=== PATIENT | female | born 1940 | race Caucasian/White ===

== ENCOUNTER 2016-08-09 20:27 | Emergency (ER) | payer MEDICARE, BC ==
[2016-08-09] MEDS ORDERED: Ondansetron INJ* 2 MG/ML VIAL IV ONE (20:44)
[2016-08-09] MEDS ORDERED: Ondansetron INJ* 2 MG/ML VIAL ONE (20:45)
[2016-08-09 20:50] LABS: Hematocrit 43 % (35-47); Mean Corpuscular HGB Conc 32 g/dl (31-36); Mean Corpuscular Hemoglobin 32 pg (27-31); Mean Corpuscular Volume 98 fL (80-97); Mean Platelet Volume 7 um3 (7.4-10.4); Red Blood Count 4.41 10^6/ul (4.0-5.4); Red Cell Distribution Width 14 % (10.5-15); White Blood Count 11.2 10^3/ul (3.5-10.8)
[2016-08-09 21:04] LABS: ALT 22 U/L (7-52); AST 20 U/L (13-39); Alkaline Phosphatase 60 U/L (34-104); Anion Gap 11 mmol/L (2-11); BUN/Creatinine Ratio 16.3 (8-20); Blood Urea Nitrogen 16 mg/dL (6-24); CO2 Carbon Dioxide 19 mmol/L (22-32); Chloride 108 mmol/L (101-111); EGFR African American 71.2 (>60); EGFR Non-African American 55.3 (>60); Globulin 3.1 g/dL (2-4); Glucose 95 mg/dL (70-100); Potassium 4.4 mmol/L (3.5-5.0); Sodium 138 mmol/L (133-145); Total Protein 7.1 g/dL (6.4-8.9)
[2016-08-09 21:22] LABS: Acetaminophen 32 mcg/mL; Alcohol 102 mg/dL (<10); Salicylate < 2.50 mg/dL (<30)
--- NOTE | 2016-08-09 21:33 | ED ---
I, Virgil Keyes, scribed for Deyvi Turner MD on 08/09/16 at 2035 . Substance Abuse/Use - HPI Summary HPI Summary: Pt is a 76 y/o female BIBA that presents to the ED c/o EtOH intoxication. Pt stated I drank too much Listerine because I was ashamed to go out and get liquor at my age." Pt stated she is nauseas, wants to vomit, and has 7/10 abd pain. Per EMS, pt reportedly drank more than 500 mL of Listerine. Hx: alcohol abuse. - History Of Current Complaint Stated Complaint: INGESTED LISTERINE Time Seen by Provider: 08/09/16 20:29 Hx Obtained From: Patient, EMS ?: No Onset/Duration of Drug/ETOH Abuse: Hours Ingestion History: Type/Name Of Drug - Listerine, Amount Ingested - 500 + mL Overdose Characteristics: Oral Timing Of Abuse: Binge Use Severity Initially: Moderate Severity Currently: Moderate Associated Signs And Symptoms: Nausea, Vomiting Related Hx: Drug/Alcohol Last Used @, Prior Drug Abuse Counseling/Admission, Prior Psych Admission - Allergies/Home Medications Allergies/Adverse Reactions: Allergies Allergy/AdvReac Type Severity Reaction Status Date / Time Bacitracin Allergy Unknown Unknown Verified 01/18/15 17:23 [From [facility]] Reaction Details Neomycin Allergy Unknown Unknown Verified 01/18/15 17:23 [[facility]] Reaction Details Polymyxin B Allergy Unknown Unknown Verified 01/18/15 17:23 [[facility]] Reaction Details Aspirin Allergy Anaphylatic Verified 01/18/15 17:23 Shock Cefuroxime [From Ceft[facility]] Allergy Swelling Verified 01/18/15 17:23 PMH/Surg Hx/FS Hx/Imm Hx Endocrine/Hematology History: Denies: Hx Anticoagulant Therapy, Hx Diabetes, Hx Thyroid Disease, Hx Anemia , Hx Unexplained Bleeding Cardiovascular History: Reports: Hx Congestive Heart Failure, Hx Hypercholesterolemia, Hx Hypertension, Other Cardiovascular Problems/Disorders - ENLARGED HEART Denies: Hx Aneurysm, Hx Angina, Hx Angioplasty, Hx Auto Implanted Cardiovert Defib, Hx Cardiac Arrest, Hx Cardiomegaly, Hx Congenital Heart Disease, Hx Coronary Artery Disease, Hx Deep Vein Thrombosis, Hx Embolism, Hx Hypotension, Hx Pacemaker/ICD, Hx Peripheral Vascular Disease, Hx Rheumatic Fever, Hx Syncope , Hx Valvular Heart Disease Respiratory History: Reports: Hx Asthma, Hx Chronic Obstructive Pulmonary Disease (COPD) Denies: Hx Chronic Bronchitis, Hx Cystic Fibrosis, Hx Lung Cancer, Hx Pleural Effusion, Hx Pneumonia, Hx Pulmonary Edema, Hx Pulmonary Embolism, Hx Seasonal Allergies, Hx Sleep Apnea, Other Respiratory Problems/Disorders GI History: Reports: Hx Hiatal Hernia, Hx Irritable Bowel History: Reports: Other Problems/Disorders - UTIs, chronic. Denies: Hx Renal Disease Musculoskeletal History: Reports: Hx Arthritis Denies: Hx Back Problems, Hx Bursitis, Hx Congenital Bone Abnormalities, Hx Fibromyalgia, Hx Gout, Hx Orthopedic Injury, Hx Osteoporosis, Hx Scoliosis, Hx Tendonitis, Other Musculoskeletal History Sensory History: Reports: Hx Contacts or Glasses Denies: Hx Cataracts, Hx Eye Injury, Hx Eye Prosthesis, Hx Glaucoma, Hx Macular Degeneration, Hx Vision Problem, Hx Deafness, Hx Hearing Aid, Hx Hearing Problem, Other Sensory Impairments Opthamlomology History: Reports: Hx Contacts or Glasses Denies: Hx Cataracts, Hx Eye Injury, Hx Eye Prosthesis, Hx Glaucoma, Hx Macular Degeneration, Hx Vision Problem, Other Sensory Impairments Neurological History: Denies: Hx Dementia, Hx Seizures Psychiatric History: Reports: Hx Anxiety, Hx Depression, Hx Community Mental Health Tx, Hx Bipolar Disorder, Hx Substance Abuse - alcohol, Other Psychiatric Issues/Disorders Denies: Hx Attention Deficit Hyperactivity Disorder, Hx Eating Disorder, Hx Panic Disorder, Hx Post Traumatic Stress Disorder, Hx Inpatient Treatment, Hx Schizophrenia, Hx Suicide Attempt, Hx of Violent Episodes Against Others - Cancer History Hx Chemotherapy: No Hx Radiation Therapy: No - Surgical History Surgery Procedure, Year, and Place: appendectomy. tonsillectomy - Immunization History Date of Tetanus Vaccine: Unsure Date of Influenza Vaccine: 2012 Infectious Disease History: Denies: Hx Hepatitis, Hx Human Immunodeficiency Virus (HIV), Hx Tuberculosis - Family History Known Family History: Positive: Other - Social History Alcohol Use: None Substance Use Type: Reports: None Smoking Status (MU): Former Smoker Amount Used/How Often: OVER 2 PPD Length of Time of Smoking/Using Tobacco: 12 YEARS Have You Smoked in the Last Year: No Review of Systems Constitutional: Negative Eyes: Negative ENT: Negative Cardiovascular: Negative Respiratory: Negative Positive: Vomiting, Nausea Genitourinary: Negative Musculoskeletal: Negative Skin: Negative Neurological: Negative Psychological: Other - EtOH intoxication All Other Systems Reviewed And Are Negative: Yes Physical Exam Triage Information Reviewed: Yes Vital Signs On Initial Exam: Initial Vitals Temp Pulse Resp BP Pulse Ox 98.1 F 117 18 138/86 98 08/09/16 20:35 08/09/16 20:35 08/09/16 20:35 08/09/16 20:35 08/09/16 20:35 Vital Signs Reviewed: Yes Appearance: Positive: Well-Appearing, No Pain Distress Skin: Positive: Warm Head/Face: Positive: Normal Head/Face Inspection Eyes: Positive: GUS ENT: Positive: Hearing grossly normal Neck: Positive: Supple Respiratory/Lung Sounds: Positive: Breath Sounds Present Cardiovascular: Positive: Normal Abdomen Description: Positive: Nontender, Soft Bowel Sounds: Positive: Present Musculoskeletal: Positive: Strength/ROM Intact Neurological: Positive: Sensory/Motor Intact, Alert, Oriented to Person Place, Time Psychiatric: Positive: Affect/Mood Appropriate Diagnostics - Vital Signs Vital Signs Temp Pulse Resp BP Pulse Ox 08/09/16 20:35 98.1 F 117 18 138/86 98 - Laboratory Lab Results: Lab Results 08/09/16 08/09/16 08/09/16 Range/Units 20:30 20:30 20:30 WBC 11.2 H (3.5-10.8) 10^3/ul RBC 4.41 (4.0-5.4) 10^6/ul Hgb 14.0 (12.0-16.0) g/dl Hct 43 (35-47) % MCV 98 H (80-97) fL MCH 32 H (27-31) pg MCHC 32 (31-36) g/dl RDW 14 (10.5-15) % Plt Count 424 (150-450) 10^3/ul MPV 7 L (7.4-10.4) um3 Neut % (Auto) 68.6 (38-83) % Lymph % (Auto) 22.3 L (25-47) % [place] % (Auto) 7.7 (1-9) % Eos % (Auto) 0.7 (0-6) % Baso % (Auto) 0.7 (0-2) % Absolute Neuts (auto) 7.7 (1.5-7.7) 10^3/ul Absolute Lymphs (auto) 2.5 (1.0-4.8) 10^3/ul Absolute Monos (auto) 0.9 H (0-0.8) 10^3/ul Absolute Eos (auto) 0.1 (0-0.6) 10^3/ul Absolute Basos (auto) 0.1 (0-0.2) 10^3/ul Absolute Nucleated RBC 0 10^3/ul Nucleated RBC % 0 Sodium 138 (133-145) mmol/L Potassium 4.4 (3.5-5.0) mmol/L Chloride 108 (101-111) mmol/L Carbon Dioxide 19 L (22-32) mmol/L Anion Gap 11 (2-11) mmol/L BUN 16 (6-24) mg/dL Creatinine 0.98 H (0.51-0.95) mg/dL Est GFR ( Amer) 71.2 (>60) Est GFR (Non-Af Amer) 55.3 (>60) BUN/Creatinine Ratio 16.3 (8-20) Glucose 95 (70-100) mg/dL Lactic Acid 2.4 H* (0.5-2.0) mmol/L Calcium 9.0 (8.6-10.3) mg/dL Total Bilirubin 0.30 (0.2-1.0) mg/dL AST 20 (13-39) U/L ALT 22 (7-52) U/L Alkaline Phosphatase 60 (34-104) U/L Total Protein 7.1 (6.4-8.9) g/dL Albumin 4.0 (3.2-5.2) g/dL Globulin 3.1 (2-4) g/dL Albumin/Globulin Ratio 1.3 (1-3) Salicylates < 2.50 (<30) mg/dL Acetaminophen 32 mcg/mL Serum Alcohol 102 H (<10) mg/dL Result Diagrams: 08/09/16 20:30 08/09/16 20:30 Lab Statement: Any lab studies that have been ordered have been reviewed, and results considered in the medical decision making process. - CT CT Brain CT Interpretation: No Acute Changes CT Interpretation Completed By: Radiologist - No acute intercranial pathology. - EKG 20:42 EKG Interpretation: Sinus tachycardia at 117 bpm, RBBB Course/Dx - Course Assessment/Plan: Pt medically cleared for mental health evaluation at 23:12. - Diagnoses Provider Diagnoses: Alcohol intoxication Discharge - Discharge Plan Condition: Improved Disposition: HOME The documentation as recorded by the Wali reynaga Karl accurately reflects the service I personally performed and the decisions made by me, Deyvi Turner MD.
[2016-08-09 21:47] LABS: Urine Bacteria Absent (Absent); Urine Bilirubin Negative (Negative); Urine Glucose Negative (Negative); Urine Nitrite Negative (Negative)
[2016-08-10 00:18] LABS: Benzodiazepine Urine Screen None Detected (None Detect)
[2016-08-10 01:23] VITALS: BP 149/90
[2016-08-10] MEDS ORDERED: Gabapentin CAP(*) 100 MG PO ONE (01:29)
[2016-08-10] MEDS ORDERED: Gabapentin CAP(*) 300 MG PO ONE (01:50)
[2016-08-10] MEDS ORDERED: Metoprolol Tartrate TAB* 25 MG PO ONE (01:50)
--- NOTE | 2016-08-10 06:58 | RAD ---
INDICATION: Intracranial injury COMPARISON: None TECHNIQUE: Noncontrast axial source images were acquired from the skull base to the vertex. FINDINGS: Ventricles/sulci: The ventricles and cisterns are normal in size and configuration for age. Brain parenchyma: There is no focal parenchymal finding, evidence of intracranial mass, or intracranial mass effect. Intracranial hemorrhage:None. Extra-axial spaces: There are no abnormal extra axial fluid collections or evidence of extra-axial mass. Calvarium: There is no calvarial fracture or other calvarial abnormality. Scalp: There is no evidence of scalp or extracalvarial soft tissue abnormality. Paranasal sinuses/mastoid: The paranasal sinuses and mastoid air cells are clear. Other: None. IMPRESSION: NO ACUTE INTRACRANIAL FINDINGS.
--- NOTE | 2016-08-12 12:58 | PN ---
Progress Note - Progress Note Note: Urine culture grew enterococcus faecalisPatient called and informed bactrim was sent to her pharmacy at [facility] for [place]. Patient also currently experiencing symptoms such as frequency, urgency and burning. 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 Return precautions given over the phone.
--- NOTE | 2016-08-13 07:21 | PN ---
Progress Note - Progress Note Note: Patient placed on Bactrim. Enterococcus susceptible. Patient on appropriate antibiotic. Nothing further indicated.
== END 2016-08-10 08:10 | disposition home or self-care (01) ==
LOC: ED 20:27
DX: F10.129 Alcohol abuse with intoxication, unspecified (principal); R11.2 Nausea with vomiting, unspecified; Z87.891 Personal history of nicotine dependence
CPT/HCPCS: 36415; 70450; 80053; 80307; 80320; 80329; 81003; 81015; 83605; 85025; 87077; 87086; 87186; 93005; 96374; 96375; 99283; A9270-GY; G0480; J2405

== ENCOUNTER 2016-08-18 11:56 | Inpatient (IN) | payer MEDICARE, BC ==
[2016-08-18] MEDS ORDERED: NS 0.9% 1000 ML* 2,000 ML IV ONE (12:26)
[2016-08-18] MEDS ORDERED: Morphine INJ* 4 MG/ML 1 ML CARPUJECT IV ONE (12:26)
[2016-08-18] MEDS ORDERED: Pantoprazole IV* 40 MG IV ONE (12:26)
[2016-08-18] MEDS ORDERED: Ondansetron INJ* 2 MG/ML VIAL IV ONE (12:26)
[2016-08-18 13:04] LABS: Comments Flag Yes; Hematocrit 19 % (35-47); Mean Corpuscular HGB Conc 32 g/dl (31-36); Mean Corpuscular Hemoglobin 33 pg (27-31); Mean Corpuscular Volume 102 fL (80-97); Mean Platelet Volume 7 um3 (7.4-10.4); Red Blood Count 1.83 10^6/ul (4.0-5.4); Red Cell Distribution Width 14 % (10.5-15); White Blood Count 11.2 10^3/ul (3.5-10.8)
[2016-08-18 13:09] LABS: Add Diff/Slide Review? Slide Review Added
--- NOTE | 2016-08-18 13:12 | RAD ---
INDICATION: Shortness of breath. COMPARISON: Comparison is made with prior chest x-ray studies from January 31, 2011 and January 16, 2015. TECHNIQUE: A portable view of the chest was obtained. FINDINGS: The heart is within normal limits in size. There is a large retrocardiac density which projects over the heart and right lung base partially air-filled most consistent with a large hiatal hernia which appears unchanged. The lungs are grossly clear. No pleural effusion is seen. IMPRESSION: 1. NO EVIDENCE FOR ACUTE FINDING. 2. LARGE HIATAL HERNIA.
[2016-08-18 13:16] LABS: Ammonia 28 mol/L (16-53)
[2016-08-18 13:21] LABS: Albumin 3.3 g/dL (3.2-5.2); BUN/Creatinine Ratio 53.7 (8-20); C Reactive Protein 6.16 mg/L (< 5.00); Calcium 8.8 mg/dL (8.6-10.3); EGFR African American 55.8 (>60); EGFR Non-African American 43.4 (>60); Globulin 2.6 g/dL (2-4); Magnesium 1.6 mg/dL (1.9-2.7); Total Bilirubin 0.2 mg/dL (0.2-1.0); Total Protein 5.9 g/dL (6.4-8.9)
[2016-08-18 13:22] LABS: B Type Natriuretic Peptide 42 pg/mL
[2016-08-18 13:24] LABS: Potassium 4.7 mmol/L (3.5-5.0)
[2016-08-18] MEDS ORDERED: Pantoprazole IV* 40 MG ONE (13:35)
[2016-08-18] MEDS ORDERED: NS 0.9% 1000 ML* 1,000 ML IV ONE (13:47)
--- NOTE | 2016-08-18 14:39 | ED ---
Geraldine Gonzalez Matthew, scribed for Urban Jamison MD on 08/18/16 at 1228 . GI/ HPI - HPI Summary HPI Summary: A 76 y/o female presents to the ED with gradually worsening rectal bleeding since a week ago. The stool is described as black. The patient is anemic and currently taking iron pills. Associated symptoms include abdominal pain, SOB, and lower back pain since a week ago. The patient denies vomiting. She is not on blood thinners and was hospitalized recently for alcoholism. She states her last drink was two weeks ago. - History of Current Complaint Chief Complaint: EDRespiratoryDistress Time Seen by Provider: 08/18/16 12:02 Stated Complaint: SHORT OF BREATH Hx Obtained From: Patient Onset/Duration: Started Weeks Ago - 1, Atraumatic, Still Present Timing: Constant Severity: Moderate Current Severity: Moderate Pain Intensity: 0 Associated Signs and Symptoms: Positive: Black Tarry Stool, Blood w/Stool, Abdominal Pain Aggravating Factor(s): Nothing Alleviating Factor(s): Nothing - Allergy/Home Medications Allergies/Adverse Reactions: Allergies Allergy/AdvReac Type Severity Reaction Status Date / Time Bacitracin Allergy Unknown Unknown Verified 01/18/15 17:23 [[facility]] Reaction Details Neomycin Allergy Unknown Unknown Verified 01/18/15 17:23 [[facility]] Reaction Details Polymyxin B Allergy Unknown Unknown Verified 01/18/15 17:23 [[facility]] Reaction Details Aspirin Allergy Anaphylatic Verified 01/18/15 17:23 Shock Cefuroxime [From Ceftin] Allergy Swelling Verified 01/18/15 17:23 PMH/Surg Hx/FS Hx/Imm Hx Endocrine/Hematology History: Denies: Hx Anticoagulant Therapy, Hx Diabetes, Hx Thyroid Disease, Hx Anemia , Hx Unexplained Bleeding Cardiovascular History: Reports: Hx Congestive Heart Failure, Hx Hypercholesterolemia, Hx Hypertension, Other Cardiovascular Problems/Disorders - ENLARGED HEART Denies: Hx Aneurysm, Hx Angina, Hx Angioplasty, Hx Auto Implanted Cardiovert Defib, Hx Cardiac Arrest, Hx Cardiomegaly, Hx Congenital Heart Disease, Hx Coronary Artery Disease, Hx Deep Vein Thrombosis, Hx Embolism, Hx Hypotension, Hx Pacemaker/ICD, Hx Peripheral Vascular Disease, Hx Rheumatic Fever, Hx Syncope , Hx Valvular Heart Disease Respiratory History: Reports: Hx Asthma, Hx Chronic Obstructive Pulmonary Disease (COPD) Denies: Hx Chronic Bronchitis, Hx Cystic Fibrosis, Hx Lung Cancer, Hx Pleural Effusion, Hx Pneumonia, Hx Pulmonary Edema, Hx Pulmonary Embolism, Hx Seasonal Allergies, Hx Sleep Apnea, Other Respiratory Problems/Disorders GI History: Reports: Hx Hiatal Hernia, Hx Irritable Bowel History: Reports: Other Problems/Disorders - UTIs, chronic. Denies: Hx Renal Disease Musculoskeletal History: Reports: Hx Arthritis Denies: Hx Back Problems, Hx Bursitis, Hx Congenital Bone Abnormalities, Hx Fibromyalgia, Hx Gout, Hx Orthopedic Injury, Hx Osteoporosis, Hx Scoliosis, Hx Tendonitis, Other Musculoskeletal History Sensory History: Reports: Hx Contacts or Glasses Denies: Hx Cataracts, Hx Eye Injury, Hx Eye Prosthesis, Hx Glaucoma, Hx Macular Degeneration, Hx Vision Problem, Hx Deafness, Hx Hearing Aid, Hx Hearing Problem, Other Sensory Impairments Opthamlomology History: Reports: Hx Contacts or Glasses Denies: Hx Cataracts, Hx Eye Injury, Hx Eye Prosthesis, Hx Glaucoma, Hx Macular Degeneration, Hx Vision Problem, Other Sensory Impairments Neurological History: Denies: Hx Dementia, Hx Seizures Psychiatric History: Reports: Hx Anxiety, Hx Depression, Hx Community Mental Health Tx, Hx Bipolar Disorder, Hx Substance Abuse - alcohol, Other Psychiatric Issues/Disorders Denies: Hx Attention Deficit Hyperactivity Disorder, Hx Eating Disorder, Hx Panic Disorder, Hx Post Traumatic Stress Disorder, Hx Inpatient Treatment, Hx Schizophrenia, Hx Suicide Attempt, Hx of Violent Episodes Against Others - Cancer History Hx Chemotherapy: No Hx Radiation Therapy: No - Surgical History Surgery Procedure, Year, and Place: appendectomy. tonsillectomy - Immunization History Date of Tetanus Vaccine: Unsure Date of Influenza Vaccine: 2012 Infectious Disease History: No Infectious Disease History: Denies: Hx Hepatitis, Hx Human Immunodeficiency Virus (HIV), Hx Tuberculosis , Traveled Outside the [place] in Last 30 Days - Family History Family History: FHx of depression, bipolar disorder, alcohol abuse, and breast CA - Social History Alcohol Use: None Substance Use Type: Reports: None Smoking Status (MU): Former Smoker Amount Used/How Often: OVER 2 PPD Length of Time of Smoking/Using Tobacco: 12 YEARS Have You Smoked in the Last Year: No Review of Systems Constitutional: Negative Eyes: Negative ENT: Negative Cardiovascular: Negative Positive: Shortness Of Breath Gastrointestinal: Other - rectal bleeding - described as black Positive: Abdominal Pain Genitourinary: Negative Musculoskeletal: Negative Skin: Negative Neurological: Negative Psychological: Normal All Other Systems Reviewed And Are Negative: Yes Physical Exam - Summary Physical Exam Summary: The patient is well-nourished in no acute distress and in no acute pain. The patient hsa ecchymosis over the right ear and she skin is pale with decreased skin turgor. HEENT: The head is normocephalic and atraumatic. The pupils are equal and reactive. The conjunctivae are pale and without drainage. Nares are patent and without drainage. Mouth reveals dry mucous membranes and the throat is without erythema and exudate. The external ears are intact. The ear canals are patent and without drainage. The tympanic membranes are intact. Neck is supple with full range of motion and non-tender. There are no carotid bruits. There is no neck vein distension. Respiratory: Chest is non-tender. Lungs are clear to auscultation and breath sounds are symmetrical and equal. Cardiovascular: Heatr is regular rhythm and tachycardic. There is no murmur or rub auscultated. There is no peripheral edema and pulses are symmetrical and equal. Abdomen: The abdomen is soft and non-tender. There are normal bowel sounds heard in all four quadrants and there is no organomegaly palpated. Musculoskeletal: There is no back pain noted. Extremities are non-tender with full range of motion. There is 2+ capillary refill. There is no peripheral edema or calf tenderness elicited. Neurological: Patient is alert and oriented to person, place and time. The patient has symmetrical motor strength in all four extremities. No LE weaknesses noted. Cranial nerves are grossly intact. Deep tendon reflexes are symmetrical and equal in all four extremities. Psychiatric: The patient has an appropriate affect and does not exhibit any anxiety or depression. Rectal Exam reveals melanotic stool Triage Information Reviewed: Yes Vital Signs On Initial Exam: Initial Vitals Temp Pulse Resp BP Pulse Ox 99.1 F 114 24 108/77 100 08/18/16 12:00 08/18/16 12:00 08/18/16 12:00 08/18/16 12:00 08/18/16 12:00 Vital Signs Reviewed: Yes Diagnostics - Vital Signs Vital Signs Temp Pulse Resp BP Pulse Ox 08/18/16 12:00 99.1 F 114 24 108/77 100 - Laboratory Lab Results: Lab Results 08/18/16 08/18/16 08/18/16 Range/Units 12:55 12:55 12:55 WBC 11.2 H (3.5-10.8) 10^3/ul RBC 1.83 L (4.0-5.4) 10^6/ul Hgb 6.0 L* (12.0-16.0) g/dl Hct 19 L (35-47) % MCV 102 H (80-97) fL MCH 33 H (27-31) pg MCHC 32 (31-36) g/dl RDW 14 (10.5-15) % Plt Count 388 (150-450) 10^3/ul MPV 7 L (7.4-10.4) um3 Neut % (Auto) 76.8 (38-83) % Lymph % (Auto) 17.8 L (25-47) % [place] % (Auto) 3.9 (1-9) % Eos % (Auto) 0.8 (0-6) % Baso % (Auto) 0.7 (0-2) % Absolute Neuts (auto) 8.6 H (1.5-7.7) 10^3/ul Absolute Lymphs (auto) 2.0 (1.0-4.8) 10^3/ul Absolute Monos (auto) 0.4 (0-0.8) 10^3/ul Absolute Eos (auto) 0.1 (0-0.6) 10^3/ul Absolute Basos (auto) 0.1 (0-0.2) 10^3/ul Absolute Nucleated RBC 0.01 10^3/ul Nucleated RBC % 0 INR (Anticoag Therapy) 0.98 (0.89-1.11) APTT 29.7 (26.0-36.3) seconds Sodium 136 (133-145) mmol/L Potassium 4.7 (3.5-5.0) mmol/L Chloride 110 (101-111) mmol/L Carbon Dioxide 14 L* (22-32) mmol/L Anion Gap 12 H (2-11) mmol/L BUN 65 H (6-24) mg/dL Creatinine 1.21 H (0.51-0.95) mg/dL Est GFR ( Amer) 55.8 (>60) Est GFR (Non-Af Amer) 43.4 (>60) BUN/Creatinine Ratio 53.7 H (8-20) Glucose 146 H (70-100) mg/dL Lactic Acid (0.5-2.0) mmol/L Calcium 8.8 (8.6-10.3) mg/dL Magnesium 1.6 L (1.9-2.7) mg/dL Total Bilirubin 0.20 (0.2-1.0) mg/dL AST 17 (13-39) U/L ALT 14 (7-52) U/L Alkaline Phosphatase 28 L (34-104) U/L Ammonia (16-53) mol/L Total Creatine Kinase 39 (10-223) U/L Troponin I 0.00 (<0.04) ng/mL C-Reactive Protein 6.16 H (< 5.00) mg/L B-Natriuretic Peptide ( - 100) pg/mL Total Protein 5.9 L (6.4-8.9) g/dL Albumin 3.3 (3.2-5.2) g/dL Globulin 2.6 (2-4) g/dL Albumin/Globulin Ratio 1.3 (1-3) Lipase 21 (11.0-82.0) U/L Blood Type Antibody Screen Crossmatch 08/18/16 08/18/16 08/18/16 Range/Units 12:55 12:55 12:55 WBC (3.5-10.8) 10^3/ul RBC (4.0-5.4) 10^6/ul Hgb (12.0-16.0) g/dl Hct (35-47) % MCV (80-97) fL MCH (27-31) pg MCHC (31-36) g/dl RDW (10.5-15) % Plt Count (150-450) 10^3/ul MPV (7.4-10.4) um3 Neut % (Auto) (38-83) % Lymph % (Auto) (25-47) % [place] % (Auto) (1-9) % Eos % (Auto) (0-6) % Baso % (Auto) (0-2) % Absolute Neuts (auto) (1.5-7.7) 10^3/ul Absolute Lymphs (auto) (1.0-4.8) 10^3/ul Absolute Monos (auto) (0-0.8) 10^3/ul Absolute Eos (auto) (0-0.6) 10^3/ul Absolute Basos (auto) (0-0.2) 10^3/ul Absolute Nucleated RBC 10^3/ul Nucleated RBC % INR (Anticoag Therapy) (0.89-1.11) APTT (26.0-36.3) seconds Sodium (133-145) mmol/L Potassium (3.5-5.0) mmol/L Chloride (101-111) mmol/L Carbon Dioxide (22-32) mmol/L Anion Gap (2-11) mmol/L BUN (6-24) mg/dL Creatinine (0.51-0.95) mg/dL Est GFR ( Amer) (>60) Est GFR (Non-Af Amer) (>60) BUN/Creatinine Ratio (8-20) Glucose (70-100) mg/dL Lactic Acid 2.2 H* (0.5-2.0) mmol/L Calcium (8.6-10.3) mg/dL Magnesium (1.9-2.7) mg/dL Total Bilirubin (0.2-1.0) mg/dL AST (13-39) U/L ALT (7-52) U/L Alkaline Phosphatase (34-104) U/L Ammonia 28 (16-53) mol/L Total Creatine Kinase (10-223) U/L Troponin I (<0.04) ng/mL C-Reactive Protein (< 5.00) mg/L B-Natriuretic Peptide 42 ( - 100) pg/mL Total Protein (6.4-8.9) g/dL Albumin (3.2-5.2) g/dL Globulin (2-4) g/dL Albumin/Globulin Ratio (1-3) Lipase (11.0-82.0) U/L Blood Type B Positive Antibody Screen Negative Crossmatch See Detail Result Diagrams: 08/18/16 12:55 08/18/16 12:55 Lab Statement: Any lab studies that have been ordered have been reviewed, and results considered in the medical decision making process. - Radiology CXR Xray Interpretation: No Acute Changes - IMPRESSION: 1. NO EVIDENCE FOR ACUTE FINDING. 2. LARGE HIATAL HERNIA. Radiology Interpretation Completed By: Radiologist - EKG 11:50 Cardiac Rate: Tachycardia - 115 bpm EKG Rhythm: Sinus Tachycardia EKG Interpretation: RBBB; Normal [place] 13:20 Cardiac Rate: Tachycardia - 104 bpm EKG Rhythm: Sinus Tachycardia EKG Interpretation: RBBB; Normal [place] GIGU Course/Dx - Course Assessment/Plan: A 76 y/o female presents to the ED with gradually worsening rectal bleeding since a week ago. The stool is described as black. Associated symptoms include abdominal pain, SOB, and lower back pain since a week ago. The patient denies vomiting. She is not on blood thinners and was hospitalized recently for alcoholism. She states her last drink was two weeks ago. CXR shows no acute findings. EKG shows sinus tachycardia at 115 bpm with RBBB. Repeat EKG shows sinus tachycardia at 105 bpm with RBBB. Discussed the case with Dr. Patel who recommend the patient be admitted by Dr. Shoemaker. Dr. Shoemaker agreed to admit the patient. Dr. Conrad was also consulted and will evaluate the patient on the floor. - Diagnoses Differential Diagnoses - Female: Other - acute gi bleed, alcohol use Provider Diagnoses: Acute upper GI bleed - Physician Notifications Discussed Care Of Patient With: Dr. Patel (Hospitalist) at 13:45 -- Notified of patient's history and recommends the patient be admitted by the ICU. Dr. Shoemaker (ICU) at 13:56 -- Notified of patient's history and will admit the patient. Dr. Conrad (GI) at 14:02 -- Notified of patient's history and will evaluate the patient on the floor. - Critical Care Time Critical Care Time: 30-74 min - 30 mins Discharge - Discharge Plan Condition: Stable Disposition: ADMITTED TO [facility] documentation as recorded by the Geraldine reynaga Matthew accurately reflects the service I personally performed and the decisions made by , Urban Jamison MD.
[2016-08-18] MEDS: Pantoprazole IV* 80 MG in NS 0.9% 250 ML* 250 ML IVPB SCH (15:02)
--- NOTE | 2016-08-18 21:54 | CONS ---
CONSULTATION: DATE OF CONSULT: 08/18/16 REASON FOR CONSULTATION: Melena, anemia. NARRATIVE: Ms. Hill is a 76-year-old woman with a remote history of alcoholism , emphysema, depression, and COPD. She states that in the last week, she has noticed her stools have become very dark, at times black. Today, she has also experienced some dyspnea. She presented to the emergency room, where she was found to be anemic with a hemoglobin of 5 and on rectal exam had black, guaiac- positive stool. The patient denies any prior history of melena, although was in the hospital 3 years ago for rectal bleeding and underwent a colonoscopy in 2013 , which demonstrated internal hemorrhoids, but no other pathology. She denies any regular use of ASPIRIN and she is allergic to ASPIRIN, but does state that at times, she takes ibuprofen alternating with Tylenol for back pain. The patient has had a history of substance abuse. She has a history of alcoholism, but never had alcohol- induced liver disease. She states that she has abstained from alcohol for 3 years, although about 2 weeks ago, did have an overdose of Listerine and was in the emergency room. Hemoglobin at that time was normal. PAST MEDICAL HISTORY: Again includes alcohol abuse, emphysema, depression, anxiety, CHF, and COPD. MEDICATIONS: The patient is a little bit unclear as to her current medicines. Listed are Fosamax, Lipitor, gabapentin, metoprolol, iron, and doxycycline recently for emphysema. She was prescribed Nexium, but has not been on that therapy. FAMILY HISTORY: Notable for a father who from alcohol-related liver disease. There is no family history of peptic ulcer disease. REVIEW OF SYSTEMS: She denies any hematemesis, but does describe a sense of nausea. She admits to some minimal upper abdominal pain. She denies any history of jaundice. PHYSICAL EXAM: The patient is a pleasant older woman, appearing comfortable, in no acute distress. Heart rate is 111 and blood pressure is 107/56. She is slightly pale. Lungs revealed some prolonged expiratory phase anteriorly. Cardiac exam reveals a tachycardic rate, but no murmur. Abdomen is soft with some mild tenderness in the epigastrium. No shifting dullness. No organomegaly. Skin reveals no telangiectasias and she is anicteric. DIAGNOSTIC STUDIES/LAB DATA: Include a white count of 11.2; hemoglobin of 6 ( hemoglobin 10 days ago was 14); and platelet count of 388,000. INR 0.98. BUN of 65 and creatinine of 1.21. Normal liver panel. Additionally, the patient had a chest x-ray, which demonstrated no pneumonia, but a large hiatal hernia. IMPRESSION: Elderly woman with a remote history of alcoholism presenting with evidence of an upper GI bleed with melena, anemia, and an elevated BUN and creatinine. She does occasionally take NSAIDs, although not regularly. She was supposed to be on Nexium, but has not been on that therapy. Although she has a history of alcoholism, there is no evidence of portal hypertension ( normal platelet count, normal LFTs), so this is likely unrelated to liver disease. Peptic ulcer disease is certainly possible. Swapnil erosions from a hiatal hernia is also possible as well. The patient will be admitted to the ICU , given IV PPI therapy, transfused, and stabilized. We will plan on pursuing an upper endoscopy tomorrow and that was discussed with her. [id number]/[facility] #: [id number] MARTIN
--- NOTE | 2016-08-18 22:19 | HP ---
ADMISSION HISTORY AND PHYSICAL: DATE OF ADMISSION: 08/18/16 REASON FOR ADMISSION: Possible upper GI bleeding. HISTORY OF PRESENT ILLNESS: (This patient is a questionable historian) This is a 76-year-old white female who presented to the emergency department with 1 week of black tarry stools and in the ED was found to have a hemoglobin of 6 and guaiac-positive stools without bright red blood. The patient has a history of ethanol abuse and most recently was seen in the emergency department (1 week ago) following ingestion of Listerine (for its alcohol content). The patient denies more recent ethanol use. The patient also has a history of psychiatric disorder (bipolar) and was admitted to the behavioral health unit at [facility] in 2013 because of delusional behavior. The patient denies vomiting, hematemesis, chest or abdominal pains, and also denies NSAID use. She also denies a history of GERD or peptic ulcer disease, although she was on omeprazole when admitted to [facility] in 2013. MEDICATIONS: Patient denies taking any outpatient meds except doxycycline, which was given for upper respiratory tract infection. DRUG ALLERGIES: None. SOCIAL HISTORY: The patient lives alone. Denies illicit drug use. FAMILY HISTORY: Next of kin is a son (Jeff) who has pancreatic carcinoma. REVIEW OF SYSTEMS: Noncontributory. PHYSICAL EXAMINATION GENERAL: The patient was alert, oriented, and anxious but in no apparent distress. VITAL SIGNS: Temperature was 99.6, blood pressure was 130/80, heart rate was 114 and regular, respirations were 18 and nonlabored. O2 sat was 93% on nasal O2 at 2 L per minute. HEENT: There was no blood in the oropharynx. NECK: Supple. No masses. LUNGS: Clear to auscultation. CARDIAC EXAM: No murmurs, rubs, or gallops. ABDOMEN: Soft, nontender, nondistended. EXTREMITIES: There was no cyanosis or edema, and extremities were warm. RECTAL: There was no stool in the vault. No external tags were noted. ADMISSION LABORATORY DATA: Hemoglobin 6, hematocrit 19, white count 11.2, and platelets 388K. INR was 0.98. PTT 29.7. Electrolytes were significant for a chloride of 110, bicarb of 14, anion gap of 12, BUN of 65, creatinine of 1.2, glucose of 146, magnesium 1.6. Liver enzymes were normal. Chest x-ray revealed clear lung kellogg and a large hiatal hernia. EKG showed sinus tachycardia with a right bundle branch block pattern. IMPRESSION: Possible upper GI hemorrhage (melena and low hematocrit). The patient is hemodynamically stable at this time, although there is evidence of volume loss (by BUN and creatinine). There is also a metabolic acidosis that is primarily a non-gap acidosis (possibly due to diarrhea). MANAGEMENT PLAN: 1. Protonix infusion. 2. GI consult for upper endoscopy. 3. Check serum lactate 4. Monitor for signs of alcohol withdrawal. The patient is aware of the admitting diagnosis and the management plan. CRITICAL CARE TIME: 60 minutes. [id number]/[facility] #: [id number] MARTIN
[2016-08-18 22:32] LABS: Hematocrit 23 % (35-47); Hemoglobin 7.5 g/dl (12.0-16.0)
[2016-08-18 22:33] LABS: Comments Flag Yes
[2016-08-19] MEDS: Pantoprazole IV* 80 MG in NS 0.9% 250 ML* 250 ML IVPB SCH ×2 (01:12→14:32)
[2016-08-19 02:41] LABS: Hematocrit 21 % (35-47)
[2016-08-19 02:43] LABS: Comments Flag Yes
[2016-08-19] MEDS ORDERED: Thiamine IV* 100 MG/ML 2 ML VIAL IM ONE (05:01)
[2016-08-19] MEDS ORDERED: Acetaminophen TAB* 325 MG PO PRN (05:01)
[2016-08-19] MEDS: LORazepam INJ* 2 MG/ML 1 ML VIAL IV SCH ×3 (05:37→09:08)
[2016-08-19] MEDS: LORazepam TAB(*) 1 MG PO SCH ×2 (05:42→14:39)
[2016-08-19 06:03] LABS: Hematocrit 21 % (35-47); Hemoglobin 6.7 g/dl (12.0-16.0); Mean Corpuscular HGB Conc 33 g/dl (31-36); Mean Corpuscular Hemoglobin 28 pg (27-31); Mean Corpuscular Volume 87 fL (80-97); Mean Platelet Volume 7 um3 (7.4-10.4); Red Blood Count 2.35 10^6/ul (4.0-5.4); Red Cell Distribution Width 25 % (10.5-15)
[2016-08-19 06:11] LABS: Comments Flag Yes
[2016-08-19 06:21] LABS: BUN/Creatinine Ratio 59.1 (8-20); Calcium 7.7 mg/dL (8.6-10.3); EGFR African American 75.6 (>60); EGFR Non-African American 58.8 (>60); Potassium 4.3 mmol/L (3.5-5.0)
[2016-08-19] MEDS ORDERED: Dexmedetomidine* 50 ML ONE (06:21)
[2016-08-19] MEDS ORDERED: Dexmedetomidine* 50 ML IVPB SCH (07:00)
[2016-08-19] MEDS ORDERED: Thiamine TAB* 100 MG TAB PO SCH (09:00)
[2016-08-19] MEDS ORDERED: Multivitamins/Minerals TAB PO SCH (09:00)
[2016-08-19] MEDS ORDERED: Haloperidol INJ IV/IM* 5 MG/ML AMP ONE (09:16)
[2016-08-19] MEDS ORDERED: Etomidate* 2 MG/ML 20 ML VIAL (40 MG) ONE (09:43)
[2016-08-19] MEDS ORDERED: Midazolam* 1 MG/ML 5 ML VIAL (5 MG) ONE (09:44)
[2016-08-19] MEDS ORDERED: fentaNYL* 50 MCG/ML 5 ML VIAL (250 MCG VIAL) ONE (09:44)
[2016-08-19] MEDS ORDERED: Propofol* 100 ML ONE (09:44)
--- NOTE | 2016-08-19 10:44 | RAD ---
Indication: Respiratory failure. Orogastric tube placement. Single frontal view of the chest performed at 1025 hours was reviewed. Comparison is made with previous exam dated August 18, 2016. Cardiomegaly is noted. Hiatal hernia is noted. Left lung field appears clear.] Or atelectasis is noted. ET tube appears to BE in appropriate location. Orogastric tube does not appear to be in place. IMPRESSION: ELEVATED RIGHT HEMIDIAPHRAGM WITH LIKELY RIGHT BASILAR ATELECTASIS. LEFT LUNG FIELD IS CLEAR. ET TUBE IN APPROPRIATE POSITION.
--- NOTE | 2016-08-19 12:00 | RAD ---
HISTORY: NG tube placement COMPARISONS: August 19, 2016 at 9:23 AM, but yesterday dated April 11, 2011 VIEWS:1: Single frontal portable view of the chest at 11:20 AM FINDINGS: LINES AND TUBES: An endotracheal tube is noted with the tip overlying the trachea between the clavicles and the imelda. A gastric tube is noted with the tip overlying the right upper quadrant. This may be intragastric given the appearance of a large jeannei hernia on the previous upper GI study, though the position is indeterminate on the submitted images. CARDIOMEDIASTINAL SILHOUETTE: The cardiomediastinal silhouette is normal for portable technique. PLEURA: There is elevation of the right hemidiaphragm. LUNG PARENCHYMA: The lungs are clear. ABDOMEN: The upper abdomen is clear. There is no subphrenic gas. BONES AND SOFT TISSUES: Degenerative changes are noted along the spine. There is a scoliotic curvature of the spine. IMPRESSION: LINES AND TUBES ABOVE. A GASTRIC TUBE MAY BE INTRAGASTRIC, THOUGH THE POSITION IS INDETERMINATE ON THE CURRENT IMAGE. FINDINGS WERE DISCUSSED WITH ICU TEAM AT APPROXIMATELY 12:00 PM ON AUGUST 19, 2016
[2016-08-19] MEDS: Folic Acid TAB* 1 MG PO SCH (12:26)
[2016-08-19] MEDS: Chlorhexidine MOUTHWASH 0.12%* 15 ML UDC TOPICAL SCH ×4 (14:40→22:08)
[2016-08-19] MEDS: Propofol* 100 ML IV SCH ×2 (15:10→18:52)
--- NOTE | 2016-08-19 15:57 | PN ---
Critical Care Services: Patient developed acute delirium overnight (probable ETOH withdrawal), which progressed to the point where patient was intubated this AM to protect her airway. Currently is sedated with propofol. No evidence of active GI bleeding since admission. Received one unit packed RBCs with Hb increasing from 6 to 6.7 g/dL. GI service has been consulted. Vital Signs: Temp Pulse Resp BP SpO2 FiO2 97.9 F 74 14 98/54 100 30 Physical Exam: Gen:Unresponsive (on propofol) Lungs:Scattered rhonchi Extremities: Warm. No cyanosis or edema. Neuro: No tremors. Fluid Balance (Past 24 Hours): 08/19/16 06:59 Intake Total 806 Output Total 400 Balance 406 Weight 171 lb Intake: IV Fluids 366 NS (0.9%) 366 Oral 440 Output: Urine 400 Other: Estimated Void Medium # Voids 4 Labs: Laboratory Results - last 24 hr 0 08/18/16 08/18/16 08/19/16 21:20 23:00 02:30 Hgb 7.5 L 7.0 L Hct 23 L 21 L 0 08/19/16 08/19/16 05:30 05:30 WBC 11.0 H RBC 2.35 L Hgb 6.7 L Hct 21 L MCV 87 MCH 28 MCHC 33 RDW 25 H Plt Count 273 MPV 7 L Sodium 139 Potassium 4.3 Chloride 117 Carbon Dioxide 16 Anion Gap 6 BUN 55 Creatinine 0.93 Glucose 112 H Studies: CXR: Post-intubation: ET tube appropriately placed in trachea. There is atelectasis at right base with elevated hemidiaphragm. Nutrition: None Impression: 1. Delirium tremens. 2. UGI bleeding that does not appear active at the present time. Plan: 1. Continue sedation with propofol. 2. Monitor for upper GI bleeding with NG tube - also follow serum Hb. 3. Upper GI endoscopy as determined by GI service. Patient's granddaughter at [facility] and informed of present condition. Patient's son (health care proxy) will be informed. Critical Care Time: 70 minutes
[2016-08-19] MEDS ORDERED: fentaNYL* 50 MCG/ML 2 ML VIAL (100 MCG VIAL) ONE (16:21)
[2016-08-19] MEDS ORDERED: Midazolam* 1 MG/ML 10 ML VIAL (10 MG) ONE (16:22)
--- NOTE | 2016-08-19 21:50 | PRO ---
DATE OF PROCEDURE: 08/19/16 - ROOM #ICU-08 PROCEDURE: Endotracheal intubation. INDICATIONS: The patient is a 76-year-old female with a history of alcohol abuse who was admitted last night with an upper GI bleeding. Overnight, the patient developed signs of alcohol withdrawal that progressed and by the following morning, the patient was severely agitated and requiring high dose of benzodiazepine and haloperidol sedation. Because the patient was assessed to have difficulty protecting her airway with the heavy level of sedation, endotracheal intubation was performed at the bedside under videoscopic control. DESCRIPTION OF PROCEDURE: A 7.5-Italian ET tube was inserted without difficulty and tracheal placement was verified by expiratory CO2 analysis. Postinsertion, chest x- ray verified tube position in the trachea and tip of the tube was retracted 1 cm for proper position. The patient was given 200 mg of fentanyl and 20 mg of etomidate prior to intubation and tolerated the overall procedure well. [id number]/[facility] #: [id number] MTDD
[2016-08-20] MEDS: Pantoprazole IV* 80 MG in NS 0.9% 250 ML* 250 ML IVPB SCH ×3 (00:50→20:48)
[2016-08-20] MEDS ORDERED: Norepinephrine 16MCG/ML IVPRE* 4,000 MCG/250 ML BAG IV PRN (00:55)
[2016-08-20] MEDS ORDERED: LACTATED RINGERS IV ONE (00:55)
[2016-08-20] MEDS: LR @ 125 MLS/HR IV SCH ×3 (01:59→20:56)
[2016-08-20] MEDS: Propofol* 100 ML IV SCH ×5 (02:40→21:03)
[2016-08-20] MEDS: Chlorhexidine MOUTHWASH 0.12%* 15 ML UDC TOPICAL SCH ×6 (04:14→23:19)
[2016-08-20 05:09] LABS: Hematocrit 13 % (35-47); Mean Corpuscular HGB Conc 32 g/dl (31-36); Mean Corpuscular Hemoglobin 29 pg (27-31); Mean Corpuscular Volume 89 fL (80-97); Mean Platelet Volume 7 um3 (7.4-10.4); Red Blood Count 1.41 10^6/ul (4.0-5.4); Red Cell Distribution Width 25 % (10.5-15); White Blood Count 11.6 10^3/ul (3.5-10.8)
[2016-08-20 05:14] LABS: Comments Flag Yes
[2016-08-20 05:16] LABS: Hemoglobin 4.1 g/dl (12.0-16.0)
[2016-08-20 05:30] LABS: BUN/Creatinine Ratio 49.4 (8-20); Calcium 7.2 mg/dL (8.6-10.3); EGFR African American 81.6 (>60); EGFR Non-African American 63.5 (>60); Magnesium 1.5 mg/dL (1.9-2.7); Potassium 3.9 mmol/L (3.5-5.0)
--- NOTE | 2016-08-20 05:59 | PRO ---
DATE OF PROCEDURE: 08/19/16 - ROOM #ICU-08 PROCEDURE PERFORMED: EGD. LOCATION: Intensive care unit. INDICATION: Melena. REQUESTING PHYSICIAN: Dr. Shoemaker. MEDICATIONS GIVEN: 50 mcg IV fentanyl, 2 mg IV Versed and propofol by the ICU staff. PROCEDURE: After the EGD procedure was explained to the patient's son, who is the health care proxy, written consent was obtained from him as the patient is intubated and sedated; IV medication was given; and a biteblock was placed between the teeth. An Olympus gastroscope was then passed in the patient's mouth down the posterior pharynx, down the esophagus. In either the posterior pharynx vs. UES, there was evidence of trauma. There were slightly bloody secretions in the posterior pharynx. The trauma did not appear significant. The patient does have an ET tube and an NG tube in place. The scope was advanced down the esophagus into the body of the stomach. Retroflex view was unremarkable. Forward view also was unremarkable. No esophageal varices were seen in the distal esophagus. The scope was advanced through a widely patent pylorus, into the duodenal bulb. Immediately upon entering the bulb, there was a clean based ulcer. There were two additional ulcers in the second portion of the duodenum, all 3 were clean based. The scope was withdrawn into the stomach , where an H. pylori biopsy was obtained. The scope was then withdrawn from the patient. She tolerated the procedure well. The NG tube did stay in place. Endoscope was withdrawn from the patient. IMPRESSION: 1. Complete upper endoscopy into the duodenal bulb with biopsy. 2. H. pylori biopsy. 3. Three clean-based duodenal bulb ulcers. 4. I will follow up on all the biopsies and report back to the ICU staff at that time. [id number]/[facility] #: [id number] [facility]
--- NOTE | 2016-08-20 08:21 | RAD ---
Indication: Postintubation. Single frontal view of the chest performed at 0600 hours was reviewed. Comparison is made with previous exam dated August 19, 2006. No mediastinal shift is noted. Heart is of normal size and configuration. Right lower lobe consolidation is noted. ET tube is at the level of T3-T4.. IMPRESSION: ET TUBE IN APPROPRIATE LOCATION. RIGHT LOWER LOBE CONSOLIDATION. LEFT LUNG FIELD IS CLEAR.
[2016-08-20] MEDS: Folic Acid TAB* 1 MG PO SCH (10:38)
--- NOTE | 2016-08-20 13:44 | PN ---
Critical Care Services: Endoscopy yesterday afternoon revealed nonbleeding duodenal ulcers, and last night there was an episode of rebleeding with Hb down to 4. Has received 2 units PRBCs with repeat Hb pending. Vital Signs: Temp Pulse Resp BP SpO2 FiO2 98.5 F 117 18 81/58 96 25 Physical Exam: Gen:Unresponsive (on propofol) and on ventilator HEENT:ET and OG tubes in place. Lungs:scattered rhonchi Extremities:no tremors or asterixis. No diaphoresis. Fluid Balance (Past 24 Hours): 08/20/16 06:59 Intake Total 2503 Output Total 1675 Balance 828 Weight 168 lb Intake: IV Fluids 1437 LR 1437 NS (0.9%) Medicated IV 1066 propofol 426 protonix 640 Oral 0 Packed Cells Output: NG Tube Drainage Amount 100 Urine Granados 1575 Other: Estimated Void Large # Bowel Movements 2 Estimated Stool Amount Large # Voids 1 Labs: 08/20/16 08/20/16 04:50 04:51 WBC 11.6 H Hgb 4.1 Hct 13 L Plt Count 207 Sodium 141 Potassium 3.9 Chloride 118 Carbon Dioxide 19 Anion Gap 4 BUN 43 Creatinine 0.87 Glucose 131 H Calcium 7.2 L Magnesium 1.5 Studies: CXR - right lower lobe consolidation/volume loss Nutrition: None Impression: 1. Recurrent GI Bleed 2. Delirium tremens 3. RLL pneumonia/atelectasis Plan: 1. Bronchoscopy to relieve any airway obstruction on the right lower lobe. 2. Transfusion of PRBCs as needed. 3. Continue heavy sedation for now. 4. Start nutrition (tube feedings) Critical Care Time: 50 minutes
[2016-08-20 14:26] LABS: Hematocrit 21 % (35-47)
[2016-08-20] MEDS ORDERED: LORazepam INJ* 2 MG/ML 1 ML VIAL ONE (17:58)
[2016-08-20] MEDS ORDERED: LORazepam INJ* 2 MG/ML 1 ML VIAL IV PUSH ONE (18:00)
[2016-08-21] MEDS: Propofol* 100 ML IV SCH ×7 (00:09→22:18)
[2016-08-21] MEDS: Chlorhexidine MOUTHWASH 0.12%* 15 ML UDC TOPICAL SCH ×7 (00:11→22:23)
--- NOTE | 2016-08-21 00:29 | PRO ---
PROCEDURE NOTE: DATE OF PROCEDURE: 08/20/16 - ROOM #ICU-08 PROCEDURE: Fiberoptic bronchoscopy at bedside. INDICATIONS: This patient is a 76-year-old white female with delirium tremens who has been intubated and on mechanical ventilation and had a chest x-ray that showed a consolidation with volume loss in the right middle and lower lobes. Because of the possibility of obstructing secretions in that area, a bronchoscopy was performed through the endotracheal tube. The tip of the ET tube was noted to be at the level of the main imelda and was withdrawn 2 cm. The right lung was then cleared of secretions and the right middle and right lower lobe bronchus were clear at the end of the procedure. It is possible that the atelectasis at the right base was the result of selective ventilation of the left lung because of the low position of the endotracheal tube. Repeat chest x-ray will be checked to determine if the radiographic changes persist. The patient tolerated the procedure well (on propofol sedation) and there were no adverse consequences. [id number]/[facility] #: [id number] [facility]
[2016-08-21] MEDS: LR @ 125 MLS/HR IV SCH (03:00)
[2016-08-21 04:28] LABS: Urine Bilirubin Negative (Negative); Urine Glucose Negative (Negative); Urine Nitrite Negative (Negative)
[2016-08-21] MEDS: Pantoprazole IV* 80 MG in NS 0.9% 250 ML* 250 ML IVPB SCH ×3 (04:44→20:01)
[2016-08-21 05:10] LABS: Hematocrit 19 % (35-47); Mean Corpuscular HGB Conc 34 g/dl (31-36); Mean Corpuscular Hemoglobin 30 pg (27-31); Mean Corpuscular Volume 88 fL (80-97); Mean Platelet Volume 7 um3 (7.4-10.4); Red Blood Count 2.16 10^6/ul (4.0-5.4); Red Cell Distribution Width 20 % (10.5-15); White Blood Count 9.8 10^3/ul (3.5-10.8)
[2016-08-21 05:14] LABS: Comments Flag Yes
[2016-08-21 05:16] LABS: Hemoglobin 6.4 g/dl (12.0-16.0)
[2016-08-21 05:27] LABS: BUN/Creatinine Ratio 31.1 (8-20); Calcium 7.1 mg/dL (8.6-10.3); EGFR African American 98.4 (>60); EGFR Non-African American 76.5 (>60); Potassium 3.5 mmol/L (3.5-5.0)
--- NOTE | 2016-08-21 08:27 | RAD ---
HISTORY: J oblique, right lower lobe atelectasis versus consolidation COMPARISONS: August 20, 2016 VIEWS:1: Single frontal portable view of the chest at 6:35 AM FINDINGS: LINES AND TUBES: An endotracheal tube is noted with the tip overlying the trachea to the clavicles and the imelda. A gastric tube is noted. The tip position is indeterminate but is likely within the stomach, deviated by a large jeannie hernia. CARDIOMEDIASTINAL SILHOUETTE: The cardiomediastinal silhouette is normal for portable technique. PLEURA: The costophrenic angles are sharp. No pleural abnormalities are noted. LUNG PARENCHYMA: There is persistent confluent alveolar opacification of the right lower lung field ABDOMEN: The upper abdomen is clear. There is no subphrenic gas. BONES AND SOFT TISSUES: No bone or soft tissue abnormalities are noted. IMPRESSION: 1. LINES AND TUBES ABOVE. 2. PERSISTENT RIGHT LOWER LUNG CONSOLIDATION
[2016-08-21] MEDS: Folic Acid TAB* 1 MG PO SCH (09:10)
[2016-08-21 12:50] LABS: Hematocrit 20 % (35-47); Hemoglobin 6.7 g/dl (12.0-16.0)
[2016-08-21 12:51] LABS: Comments Flag Yes
--- NOTE | 2016-08-21 14:47 | PN ---
Critical Care Services: Continues on ventilator and sedated with propofol. Following bronchoscopy yesterday, righ lung partially expanded. No evidence of active bleeding in last 24 hours. Vital Signs: Temp Pulse Resp BP SpO2 FiO2 98 F 92 17 100/56 97 25 Physical Exam: Gen: HEENT: Lungs: Cardiac: Abdomen: Extremities: Neuro: Fluid Balance (Past 24 Hours): 08/21/16 06:59 Intake Total 4274 Output Total 1500 Balance 2774 Weight 177 lb Intake: IV Fluids 2445 LR 2234 NS (0.9%) 211 Medicated IV 1171 propofol 611 protonix 560 Oral Tube Feeding Flush Amount 90 Packed Cells 568 Output: NG Tube Drainage Amount 100 Urine Granados 1400 Other: Estimated Void Date of Last Bowel 08/21/16 Movement # Bowel Movements Estimated Stool Amount Small # Voids Labs: Laboratory Results - last 24 hr 08/21/16 08/21/16 04:59 04:59 WBC 9.8 Hgb 6.4 Hct 19 L Plt Count 170 Sodium 142 Potassium 3.5 Chloride 118 Carbon Dioxide 20 Anion Gap 4 BUN 23 Creatinine 0.74 Glucose 99 Calcium 7.1 08/21/16 12:00 Hgb 6.7 Hct 20 Studies: CXR: Partial re-expansion of RML and RLL. Nutrition: Jevity 1.2 at 40 cc/hr (started today) Impression: No evidence of active bleeding in last 24 hours. Plan: Follow Hb/Hct and vital signs for evidence of acute bleeding. Monitor CXR for the atelectasis in the right lung. Wean from propofol sedation when able. Critical Care Time: 50 minutes
[2016-08-22] MEDS ORDERED: fentaNYL* 50 MCG/ML 2 ML VIAL (100 MCG VIAL) IV ONE (00:30)
[2016-08-22] MEDS ORDERED: fentaNYL* 50 MCG/ML 2 ML VIAL (100 MCG VIAL) ONE (00:33)
[2016-08-22 00:45] LABS: Hematocrit 18 % (35-47)
[2016-08-22 00:48] LABS: Comments Flag Yes
[2016-08-22 00:49] LABS: Hemoglobin 5.7 g/dl (12.0-16.0)
[2016-08-22] MEDS: Propofol* 100 ML IV SCH ×6 (01:34→22:42)
[2016-08-22] MEDS: Chlorhexidine MOUTHWASH 0.12%* 15 ML UDC TOPICAL SCH ×6 (02:00→21:59)
[2016-08-22] MEDS ORDERED: LORazepam INJ* 2 MG/ML 1 ML VIAL IV PUSH ONE (05:00)
[2016-08-22] MEDS: Pantoprazole IV* 80 MG in NS 0.9% 250 ML* 250 ML IVPB SCH ×2 (05:59→16:25)
[2016-08-22 07:26] LABS: Hematocrit 20 % (35-47); Hemoglobin 6.6 g/dl (12.0-16.0); Mean Corpuscular HGB Conc 32 g/dl (31-36); Mean Corpuscular Hemoglobin 29 pg (27-31); Mean Corpuscular Volume 90 fL (80-97); Mean Platelet Volume 8 um3 (7.4-10.4); Red Blood Count 2.26 10^6/ul (4.0-5.4); Red Cell Distribution Width 19 % (10.5-15); White Blood Count 13.3 10^3/ul (3.5-10.8)
[2016-08-22 07:29] LABS: Comments Flag Yes
[2016-08-22 07:42] LABS: Calcium 7.2 mg/dL (8.6-10.3); EGFR African American 98.4 (>60); EGFR Non-African American 76.5 (>60); Potassium 3.5 mmol/L (3.5-5.0)
--- NOTE | 2016-08-22 08:03 | RAD ---
INDICATION: Evaluate right-sided atelectasis COMPARISON: Most using comparison chest x-rays dated August 21, 2016 TECHNIQUE: Single AP portable view of the chest was obtained. FINDINGS: Image quality is compromised due to the relative inferiority of a portable chest x-ray. Again seen is an appropriately positioned endotracheal tube and right PICC line. There is mild cardiomegaly similar in appearance to previous chest x-ray. Patchy density is seen overlying the right lung obscuring the right hemidiaphragm and costophrenic angle. This is slightly progressed when compared to the previous chest x-ray. There is new density seen at the left lung base causing obscuration the left hemidiaphragm and left costophrenic angle blunting. Visualized bones are normal for the patient's age. IMPRESSION: Worsening aeration as described above when compared to the previous day chest x-ray.
[2016-08-22] MEDS: Folic Acid TAB* 1 MG PO SCH (09:26)
[2016-08-22 12:29] LABS: Comments Flag Yes; Hematocrit 18 % (35-47)
[2016-08-22 12:31] LABS: Hemoglobin 5.9 g/dl (12.0-16.0)
--- NOTE | 2016-08-22 13:18 | PN ---
Critical Care Services: Has received 5 units packed RBCs, and last Hb = 5.9 g/dL. No evidence of active bleeding at present. Continues to require propofol sedation for agitated delirium. Vital Signs: Temp Pulse Resp BP SpO2 FiO2 97.8 F 96 25 115/58 94 25 Physical Exam: Gen:Unresponsive (on propofol) HEENT:Pupils midposition and reactive Lungs: Coarse rhonchi R>L Extremities:No diaphoresis. No cyanosis or edema. Neuro:No tremors Fluid Balance (Past 24 Hours): 08/22/16 06:59 Intake Total 3234 Output Total 1350 Balance +1884 Weight 180 lb Intake: IV Fluids 1561 LR 1461 NS (0.9%) 100 Medicated IV 1007 propofol 595 protonix 412 Oral Tube Feeding 666 Tube Feeding Flush Amount Packed Cells Output: NG Tube Drainage Amount Granados 1350 Other: Estimated Stool Amount Large Labs: 08/22/16 08/22/16 00:20 06:50 WBC 13.3 Hgb 5.7 6.6 Hct 18 20 Plt Count 177 Sodium 145 Potassium 3.5 Chloride 118 Carbon Dioxide 21 Anion Gap 6 BUN 20 Creatinine 0.74 Glucose 143 08/22/16 12:15 Hgb 5.9 Hct 18 Studies: CXR: Increasing volume loss in right lung (RML and RLL). Nutrition: Tube feedings Impression: 1. H/H stable today 2. Volume loss right lung secondary to retained secretions. Plan: 1. Monitor H/H 2. Trial of mucomyst to clear respiratory secretions. 3. Overall prognosis here is poor (given Hx of alcoholism and bleeding duodenal ulcers), and thus will sp[eak with patients son regarding advanced directives. Critical Care Time: 40 minutes
[2016-08-22] MEDS: [UNRECOGNIZED DRUG - OTHER] INH SCH ×2 (15:27→21:20)
[2016-08-22] MEDS: Albuterol 2.5 MG/3 ML NEB.SOL* (0.083%) INH SCH ×2 (15:27→21:20)
[2016-08-22 18:18] LABS: Hematocrit 18 % (35-47)
[2016-08-22 18:22] LABS: Comments Flag Yes
[2016-08-22 18:23] LABS: Hemoglobin 6.1 g/dl (12.0-16.0)
[2016-08-22 23:43] LABS: Hematocrit 17 % (35-47)
[2016-08-22 23:46] LABS: Comments Flag Yes
[2016-08-22 23:47] LABS: Hemoglobin 5.6 g/dl (12.0-16.0)
[2016-08-23] MEDS: Pantoprazole IV* 80 MG in NS 0.9% 250 ML* 250 ML IVPB SCH (02:35)
[2016-08-23] MEDS: Chlorhexidine MOUTHWASH 0.12%* 15 ML UDC TOPICAL SCH ×3 (02:35→11:13)
[2016-08-23] MEDS: Propofol* 100 ML IV SCH (03:23)
[2016-08-23] MEDS: Albuterol 2.5 MG/3 ML NEB.SOL* (0.083%) INH SCH ×2 (03:28→09:19)
[2016-08-23] MEDS: [UNRECOGNIZED DRUG - OTHER] INH SCH ×2 (03:28→09:20)
[2016-08-23 06:46] LABS: Comments Flag Yes; Hematocrit 21 % (35-47); Hemoglobin 6.8 g/dl (12.0-16.0); Mean Corpuscular HGB Conc 33 g/dl (31-36); Mean Corpuscular Hemoglobin 28 pg (27-31); Mean Corpuscular Volume 87 fL (80-97); Mean Platelet Volume 8 um3 (7.4-10.4); Red Blood Count 2.41 10^6/ul (4.0-5.4); Red Cell Distribution Width 20 % (10.5-15); White Blood Count 10.7 10^3/ul (3.5-10.8)
[2016-08-23 07:06] LABS: BUN/Creatinine Ratio 21.5 (8-20); Calcium 7.3 mg/dL (8.6-10.3); EGFR African American 114.3 (>60); EGFR Non-African American 88.9 (>60); Potassium 3.4 mmol/L (3.5-5.0)
[2016-08-23] MEDS ORDERED: Furosemide IV* 10 MG/ML VIAL (40 MG) IV ONE (08:31)
[2016-08-23] MEDS: Haloperidol INJ IV/IM* 5 MG/ML AMP IV SLOW PU PRN ×2 (09:09→17:10)
[2016-08-23] MEDS ORDERED: Magnesium Sulfate IV* 3 GM in NS 0.9% 100 ML* 100 ML IVPB ONE (09:15)
[2016-08-23] MEDS: Folic Acid TAB* 1 MG PO SCH (09:15)
--- NOTE | 2016-08-23 10:51 | RAD ---
HISTORY: Atelectasis right lung COMPARISONS: 08/22/2016 VIEWS:1: Single frontal portable view of the chest at 6:33 AM FINDINGS: LINES AND TUBES: An endotracheal tube is noted with the tip overlying the trachea between the clavicles and the imelda. A gastric tube is noted. The position is indeterminate but is likely within the stomach. The position is stable. CARDIOMEDIASTINAL SILHOUETTE: The cardiomediastinal silhouette is stable. PLEURA: The costophrenic angles are sharp. No pleural abnormalities are noted. LUNG PARENCHYMA: There is persistent comparable to underpenetration of the right mid and lower lung kellogg. There is developing alveolar opacification of the left lower lung field ABDOMEN: The upper abdomen is clear. There is no subphrenic gas. BONES AND SOFT TISSUES: No bone or soft tissue abnormalities are noted. IMPRESSION: 1. LINES AND TUBES ABOVE. 2. PERSISTENT RIGHT MID AND LOWER LUNG ATELECTASIS VERSUS CONSOLIDATION WITH DEVELOPING ATELECTASIS VERSUS CONSOLIDATION OF THE LEFT LOWER LUNG
[2016-08-23] MEDS ORDERED: NS 0.9% 100 ML* 100 ML ONE (11:10)
[2016-08-23] MEDS ORDERED: Pantoprazole IV* 80 MG in NS 0.9% 250 ML* 250 ML IVPB SCH (13:00)
--- NOTE | 2016-08-23 14:31 | PN ---
Critical Care Services: Weaned off ventilator and extubated earlier today without incident. Vital Signs: Temp Pulse Resp BP SpO2 FiO2 98.4 F 117 29 145/96 98 25 Physical Exam: Gen:Somnolent but arousable HEENT:OP clear Lungs:No crackles or wheezes Extremities:warm. No cyanosis. 1+ edema Neuro:No tremors. Fluid Balance (Past 24 Hours): 08/23/16 06:59 Intake Total 4093 Output Total 1200 Balance +2893 Weight 184 lb 15.485 oz Intake: IV Fluids 1704 LR 1654 NS 50 NS (0.9%) Medicated IV 1058 propofol 489 protonix 569 Tube Feeding 966 Tube Feeding Flush Amount 40 Packed Cells 325 Output: Granados 1200 Other: Estimated Stool Amount Small Labs: 08/23/16 08/23/16 06:05 06:05 WBC 10.7 Hgb 6.8 Hct 21 Plt Count 174 Sodium 145 Potassium 3.4 Chloride 117 Carbon Dioxide 22 Anion Gap 6 BUN 14 Creatinine 0.65 Glucose 136 Calcium 7.3 Studies: CXR: Continued volume loss in RML, RLL. Nutrition: Start oral diet Impression: No signs of active ETOH withdrawal or active GI bleeding. Atelectasis right lung continues but is not clinically a problem. Plan: 1. Continue to monitor H/H 2. Start BipAP treatments to keep right lung expanded. 3. Use oral benzos for sedation. 4. IV Lasix today for positive fluid balance. Critical Care Time: 40 minutes
[2016-08-23] MEDS: Pantoprazole IV* 40 MG IV SCH (14:48)
[2016-08-24 07:03] LABS: Hematocrit 20 % (35-47); Hemoglobin 6.8 g/dl (12.0-16.0); Mean Corpuscular HGB Conc 33 g/dl (31-36); Mean Corpuscular Hemoglobin 29 pg (27-31); Mean Corpuscular Volume 87 fL (80-97); Mean Platelet Volume 8 um3 (7.4-10.4); Red Blood Count 2.34 10^6/ul (4.0-5.4); Red Cell Distribution Width 20 % (10.5-15); White Blood Count 8.3 10^3/ul (3.5-10.8)
[2016-08-24 07:05] LABS: Comments Flag Yes
[2016-08-24 07:43] LABS: BUN/Creatinine Ratio 20.3 (8-20); Calcium 7.6 mg/dL (8.6-10.3); EGFR African American 127.8 (>60); EGFR Non-African American 99.4 (>60); Potassium 3.6 mmol/L (3.5-5.0)
[2016-08-24] MEDS ORDERED: Albuterol HFA INHALER* 8 gm MDI INH PRN (11:51)
--- NOTE | 2016-08-24 12:38 | PN ---
Critical Care Services: Resting comfortably, but continues to be confused when awake. No evidence of active bleeding. Vital Signs: Temp Pulse Resp BP SpO2 FiO2 98.6 F 113 21 146/78 97 30 Physical Exam: Gen:As stated. Lungs: Occasional rhonchi Extremities:Warm. No cyanosis. Trace edema. Neuro:No tremors Fluid Balance (Past 24 Hours): I= O= Net Intake & Output 08/22/16 08/23/16 08/24/16 08/25/16 06:59 06:59 06:59 06:59 Intake Total 3234 4093 1322 260 Output Total 1350 1200 3600 Balance 1884 2893 -2278 260 Weight 180 lb 12.465 oz 184 lb 15.485 oz 181 lb 3.52 oz Intake: IV Fluids 1561 1704 500 LR 1461 1654 500 NS 50 NS (0.9%) 100 IVPB 105 LR 105 Medicated IV 1007 1058 230 propofol 595 489 30 protonix 412 569 200 Oral 300 260 Tube Feeding 666 966 127 Tube Feeding Flush Amount 40 60 Packed Cells 325 Output: Granados 1350 1200 3600 Other: Date of Last Bowel 1 Movement Estimated Stool Amount Large Small ADLs: Meal Record Start: 08/18/16 14: 43 Freq: Status: Active Document 08/18/16 17:57 [id number] (Rec: 08/18/16 17:57 [id number] ICU-C06) Document 08/19/16 09:00 [id number] (Rec: 08/19/16 10:28 [id number] ICU-C16) Document 08/19/16 12:46 [id number] (Rec: 08/19/16 12:46 [id number] ICU-C25) Document 08/19/16 18:56 [id number] (Rec: 08/19/16 18:56 [id number] ICU-C06) Document 08/20/16 09:00 [id number] (Rec: 08/20/16 12:14 [id number] ICU-C06) Document 08/20/16 13:00 [id number] (Rec: 08/20/16 15:00 [id number] ICU-C06) Document 08/20/16 18:00 [id number] (Rec: 08/20/16 22:13 [id number] ICU-C07) Document 08/24/16 09:43 [id number] (Rec: 08/24/16 09:43 [id number] ICU-C20) Intake and Output Start: 08/18/16 14: 43 Freq: 06,14,22 Status: Active Document 08/18/16 22:00 [id number] (Rec: 08/18/16 22:38 [id number] ICU-C14) Document 08/19/16 01:13 [id number] (Rec: 08/19/16 01:13 [id number] ICU-C14) Document 08/19/16 12:38 [id number] (Rec: 08/19/16 12:39 [id number] ICU-C06) Document 08/19/16 15:43 [id number] (Rec: 08/19/16 15:51 [id number] ICU-C06) Document 08/19/16 22:00 [id number] (Rec: 08/19/16 22:08 [id number]-[id number]) Document 08/20/16 06:00 [id number] (Rec: 08/20/16 06:27 [id number] ICU-M08) Document 08/20/16 12:15 [id number] (Rec: 08/20/16 12:16 [id number] ICU-C06) Document 08/20/16 14:00 [id number] (Rec: 08/20/16 14:55 [id number] ICU-C06) Document 08/20/16 22:49 [id number] (Rec: 08/20/16 22:49 [id number] ICU-C07) Document 08/21/16 04:30 [id number] (Rec: 08/21/16 04:30 [id number] ICU-C07) Document 08/21/16 05:06 [id number] (Rec: 08/21/16 05:06 [id number] ICU-M08) Document 08/21/16 13:43 [id number] (Rec: 08/21/16 13:43 [id number] ICU-C07) Document 08/21/16 22:31 [id number] (Rec: 08/21/16 22:31 [id number] ICU-M08) Document 08/22/16 06:04 [id number] (Rec: 08/22/16 06:04 [id number] ICU-M08) Document 08/22/16 13:27 [id number] (Rec: 08/22/16 13:27 [id number] ICU-C23) Document 08/22/16 13:34 [id number] (Rec: 08/22/16 13:35 [id number] ICU-M08) Document 08/22/16 22:00 [id number] (Rec: 08/22/16 22:14 [id number] ICU-C10) Document 08/23/16 06:12 [id number] (Rec: 08/23/16 06:13 [id number] ICU-M08) Document 08/23/16 11:00 [id number] (Rec: 08/23/16 11:17 [id number] ICU-M08) Document 08/23/16 13:04 [id number] (Rec: 08/23/16 13:05 [id number] ICU-C20) Document 08/23/16 21:58 [id number] (Rec: 08/23/16 21:59 [id number] ICU-C14) Document 08/24/16 05:42 [id number] (Rec: 08/24/16 05:42 [id number] ICU-C14) Labs: 08/24/16 08/24/16 05:52 05:52 WBC 8.3 Hgb 6.8 Hct 20 Plt Count 182 Sodium 146 Potassium 3.6 Chloride 114 Carbon Dioxide 27 Anion Gap 5 BUN 12 Creatinine 0.59 Glucose 93 Calcium 7.6 L NOTE: Hb stable past 2 days. Studies: CXR: Nutrition: Oral diet Impression: Problems: 1. ETOH withdrawal - has mostly resolved 2. Recurrent UGI bleeding - from duodenal ulcers - not active at present. On IV protonix (40 mg daily) 3. Opacification at right base - atelectasis vs effusion - not a problem at present. 4. Bipolar disorder - on her outpatient meds. Plan: 1. Monitor H/H. 2. Ultrasound right base (patient would probably not cooperate for a CT scan).
[2016-08-24] MEDS: Pantoprazole IV* 40 MG IV SCH (13:05)
[2016-08-24] MEDS: Gabapentin CAP(*) 300 MG PO SCH ×2 (13:05→20:11)
[2016-08-24] MEDS: Venlafaxine EXT RELEASE CAP* 37.5 MG PO SCH ×2 (13:05→20:13)
--- NOTE | 2016-08-24 13:21 | RAD ---
Indication: Pneumonia, atelectasis in the right lung base. Single frontal view of the chest performed at 1240 hours was reviewed. Comparison is made with previous exam dated August 23, 2016. Right lower lobe consolidation or atelectasis is present. Left lung field is present. ET tube has been removed. Central line is in place. IMPRESSION: RIGHT LOWER LOBE CONSOLIDATION OR ATELECTASIS. ENDOTRACHEAL TUBE HAS BEEN REMOVED.
--- NOTE | 2016-08-24 17:50 | RAD ---
Indication: Right upper extremity swelling. Duplex Doppler sonography of the right upper extremity deep venous system was performed. The right internal jugular vein demonstrates normal phasic flow. The right subclavian vein demonstrates echogenic material within the right subclavian vein. Minimal flow is noted. The PICC line is identified. Echogenic material surrounds the PICC line in the subclavian vein. In the right axillary vein, brachial vein and basilic vein there is echogenic material surrounding the PICC line with no flow and no compressibility. Cephalic vein, radial vein and ulnar vein are patent and compressible. IMPRESSION: THROMBOSIS OF THE RIGHT BASILIC VEIN, BRACHIAL VEIN AND AXILLARY VEIN WITH THROMBUS SURROUNDING THE PICC LINE. PARTIAL THROMBOSIS OF THE RIGHT SUBCLAVIAN VEIN IS NOTED.
[2016-08-24] MEDS: Atorvastatin* 20 MG TAB PO SCH (17:52)
[2016-08-24] MEDS ORDERED: Magnesium Hydroxide LIQ* 30 ML UDC PO ONE (19:15)
[2016-08-24] MEDS ORDERED: Docusate CAP* 100 MG PO PRN (19:15)
--- NOTE | 2016-08-24 19:15 | PN ---
Progress Note - Progress Note Note: Pt's doppler shows DVT of R UE. Unfortunately due to GI bleed 4 days ago and duodenal ulcers noted on EGD anticoagulation is contraindicated. Pt's Hb is 6 today. Will check stool guaiac. Recheck Hb in AM
[2016-08-24] MEDS: NS 0.45% 1000 ML BAG* 1,000 ML IV SCH (19:24)
[2016-08-24] MEDS: Metoprolol Tartrate TAB* 25 MG PO SCH (20:12)
[2016-08-24] MEDS: Acetaminophen TAB* 325 MG PO PRN (20:44)
[2016-08-24] MEDS: Benzonatate CAP* 100 MG PO PRN (20:45)
[2016-08-25 06:14] LABS: Hematocrit 22 % (35-47); Mean Corpuscular HGB Conc 32 g/dl (31-36); Mean Corpuscular Hemoglobin 28 pg (27-31); Mean Corpuscular Volume 87 fL (80-97); Mean Platelet Volume 8 um3 (7.4-10.4); Red Blood Count 2.48 10^6/ul (4.0-5.4); Red Cell Distribution Width 20 % (10.5-15); White Blood Count 7.3 10^3/ul (3.5-10.8)
[2016-08-25 06:33] LABS: BUN/Creatinine Ratio 23.1 (8-20); Calcium 8.1 mg/dL (8.6-10.3); EGFR African American 147.8 (>60); Potassium 3.6 mmol/L (3.5-5.0)
[2016-08-25] MEDS: Benzonatate CAP* 100 MG PO PRN (08:18)
[2016-08-25] MEDS: Acetaminophen TAB* 325 MG PO PRN (08:19)
[2016-08-25] MEDS: Gabapentin CAP(*) 300 MG PO SCH ×2 (08:19→20:31)
[2016-08-25] MEDS: Venlafaxine EXT RELEASE CAP* 37.5 MG PO SCH ×2 (08:19→20:30)
[2016-08-25] MEDS: Metoprolol Tartrate TAB* 25 MG PO SCH ×2 (08:20→20:30)
--- NOTE | 2016-08-25 09:19 | PN ---
Subjective Date of Service: 08/25/16 Interval History: patient is alert, confused, she states she "feels much better today". Denies any pain. No vomiting or blood noted in stool. Reports good appetite. Denies SOB or CP. Objective Active Medications: Acetaminophen (Tylenol Tab*) 650 mg PO Q4H PRN PRN Reason: FEVER/PAIN Last Admin: 08/25/16 08:19 Dose: 650 mg Albuterol (Ventolin Hfa Inhaler*) 2 puff INH Q6H PRN PRN Reason: SOB/WHEEZING Atorvastatin Calcium (Lipitor*) 20 mg PO 1700 [facility] Last Admin: 08/24/16 17:52 Dose: 20 mg Benzonatate (Tessalon Cap*) 200 mg PO TID PRN PRN Reason: COUGH Last Admin: 08/25/16 08:18 Dose: 200 mg Docusate Sodium (Colace Cap*) 100 mg PO BID PRN PRN Reason: CONSTIPATION Gabapentin (Neurontin Cap(*)) 300 mg PO BID [facility] Last Admin: 08/25/16 08:19 Dose: 300 mg Haloperidol Lactate (Haldol Inj Iv/Im*) 5 mg IV SLOW PU Q4H PRN PRN Reason: AGITATION Last Admin: 08/23/16 17:10 Dose: 5 mg Heparin Sodium (Porcine) (Heparin Flush Picc/Ml/Cvc(*)) 1 ml IV FLUSH 0600, 1800 [facility] PRN Reason: Protocol Last Admin: 08/25/16 06:03 Dose: 1 ml Sodium Chloride (Ns 0.45% 1000 Ml Bag*) 1,000 mls @ 50 mls/hr IV PER RATE [facility] Last Admin: 08/24/16 19:24 Dose: 50 mls/hr Lorazepam (Ativan Inj*) 1 mg IV PUSH Q4H PRN PRN Reason: ANXIETY Metoprolol Tartrate (Lopressor Tab*) 12.5 mg PO Q12HR [facility] Last Admin: 08/25/16 08:20 Dose: 12.5 mg Pantoprazole Sodium (Protonix Iv*) 40 mg IV Q24H [facility] Last Admin: 08/24/16 13:05 Dose: 40 mg Venlafaxine HCl (Effexor Xr Cap*) 37.5 mg PO BID [facility] Last Admin: 08/25/16 08:19 Dose: 37.5 mg Vital Signs 08/24/16 08/24/16 08/24/16 10:00 10:06 11:00 Temperature Pulse Rate 111 129 113 Respiratory 22 19 19 Rate Blood Pressure 154/82 146/78 (mmHg) O2 Sat by Pulse 99 99 97 Oximetry 08/24/16 08/24/16 08/24/16 11:47 12:00 13:00 Temperature 98.6 F Pulse Rate 105 118 Respiratory 24 25 Rate Blood Pressure 136/71 (mmHg) O2 Sat by Pulse 99 97 Oximetry 08/24/16 08/24/16 08/24/16 14:00 15:02 15:15 Temperature 98.1 F Pulse Rate 111 116 Respiratory 21 16 16 Rate Blood Pressure 133/75 140/86 (mmHg) O2 Sat by Pulse 98 100 Oximetry 08/24/16 08/24/16 08/24/16 16:00 20:00 20:05 Temperature 98.1 F Pulse Rate 97 Respiratory 18 18 Rate Blood Pressure 146/81 (mmHg) O2 Sat by Pulse 100 100 Oximetry 08/24/16 08/24/16 08/24/16 20:11 22:11 23:18 Temperature 97.8 F Pulse Rate 99 Respiratory 18 18 24 Rate Blood Pressure 134/80 (mmHg) O2 Sat by Pulse 100 Oximetry 08/25/16 08/25/16 08/25/16 02:01 04:24 07:38 Temperature 98.9 F 98.3 F Pulse Rate 99 91 102 Respiratory 16 16 16 Rate Blood Pressure 121/67 139/83 (mmHg) O2 Sat by Pulse 98 99 99 Oximetry 08/25/16 08/25/16 08:19 08:47 Temperature Pulse Rate 103 Respiratory 20 14 Rate Blood Pressure (mmHg) O2 Sat by Pulse 98 Oximetry Oxygen Devices in Use Now: None Appearance: obese female laying in bed alert, confused, follows commands. Eyes: No Scleral Icterus, PERRLA Ears/Nose/Mouth/Throat: NL Teeth, Lips, Gums, Mucous Membranes Moist Neck: NL Appearance and Movements; NL JVP Respiratory: Symmetrical Chest Expansion and Respiratory Effort, Clear to Auscultation Cardiovascular: NL Sounds; No Murmurs; No JVD, RRR, No Edema Abdominal: NL Sounds; No Tenderness; No Distention Lymphatic: No Cervical Adenopathy Extremities: No Edema, No Clubbing, Cyanosis Skin: No Rash or Ulcers, No Nodules or Sclerosis Neurological: Alert and Oriented x 3, NL Sensation, NL Muscle Strength and Tone Lines/Tubes/Other Access: Clean, Dry and Intact Peripheral IV Nutrition: Taking PO's Result Diagrams: 08/25/16 12:00 08/25/16 06:02 Additional Lab and Data: Lab Results 08/18/16 08/18/16 08/18/16 Range/Units 12:55 12:55 12:55 WBC 11.2 H (3.5-10.8) 10^3/ul RBC 1.83 L (4.0-5.4) 10^6/ul Hgb 6.0 L* (12.0-16.0) g/dl Hct 19 L (35-47) % MCV 102 H (80-97) fL MCH 33 H (27-31) pg MCHC 32 (31-36) g/dl RDW 14 (10.5-15) % Plt Count 388 (150-450) 10^3/ul MPV 7 L (7.4-10.4) um3 Neut % (Auto) 76.8 (38-83) % Lymph % (Auto) 17.8 L (25-47) % [place] % (Auto) 3.9 (1-9) % Eos % (Auto) 0.8 (0-6) % Baso % (Auto) 0.7 (0-2) % Absolute Neuts (auto) 8.6 H (1.5-7.7) 10^3/ul Absolute Lymphs (auto) 2.0 (1.0-4.8) 10^3/ul Absolute Monos (auto) 0.4 (0-0.8) 10^3/ul Absolute Eos (auto) 0.1 (0-0.6) 10^3/ul Absolute Basos (auto) 0.1 (0-0.2) 10^3/ul Absolute Nucleated RBC 0.01 10^3/ul Nucleated RBC % 0 INR (Anticoag Therapy) 0.98 (0.89-1.11) APTT 29.7 (26.0-36.3) seconds Sodium 136 (133-145) mmol/L Potassium 4.7 (3.5-5.0) mmol/L Chloride 110 (101-111) mmol/L Carbon Dioxide 14 L* (22-32) mmol/L Anion Gap 12 H (2-11) mmol/L BUN 65 H (6-24) mg/dL Creatinine 1.21 H (0.51-0.95) mg/dL Est GFR ( Amer) 55.8 (>60) Est GFR (Non-Af Amer) 43.4 (>60) BUN/Creatinine Ratio 53.7 H (8-20) Glucose 146 H (70-100) mg/dL Lactic Acid (0.5-2.0) mmol/L Calcium 8.8 (8.6-10.3) mg/dL Magnesium 1.6 L (1.9-2.7) mg/dL Total Bilirubin 0.20 (0.2-1.0) mg/dL AST 17 (13-39) U/L ALT 14 (7-52) U/L Alkaline Phosphatase 28 L (34-104) U/L Ammonia (16-53) mol/L Total Creatine Kinase 39 (10-223) U/L Troponin I 0.00 (<0.04) ng/mL C-Reactive Protein 6.16 H (< 5.00) mg/L B-Natriuretic Peptide ( - 100) pg/mL Total Protein 5.9 L (6.4-8.9) g/dL Albumin 3.3 (3.2-5.2) g/dL Globulin 2.6 (2-4) g/dL Albumin/Globulin Ratio 1.3 (1-3) Lipase 21 (11.0-82.0) U/L Blood Type Antibody Screen Crossmatch 08/18/16 08/18/16 08/18/16 Range/Units 12:55 12:55 12:55 WBC (3.5-10.8) 10^3/ul RBC (4.0-5.4) 10^6/ul Hgb (12.0-16.0) g/dl Hct (35-47) % MCV (80-97) fL MCH (27-31) pg MCHC (31-36) g/dl RDW (10.5-15) % Plt Count (150-450) 10^3/ul MPV (7.4-10.4) um3 Neut % (Auto) (38-83) % Lymph % (Auto) (25-47) % [place] % (Auto) (1-9) % Eos % (Auto) (0-6) % Baso % (Auto) (0-2) % Absolute Neuts (auto) (1.5-7.7) 10^3/ul Absolute Lymphs (auto) (1.0-4.8) 10^3/ul Absolute Monos (auto) (0-0.8) 10^3/ul Absolute Eos (auto) (0-0.6) 10^3/ul Absolute Basos (auto) (0-0.2) 10^3/ul Absolute Nucleated RBC 10^3/ul Nucleated RBC % INR (Anticoag Therapy) (0.89-1.11) APTT (26.0-36.3) seconds Sodium (133-145) mmol/L Potassium (3.5-5.0) mmol/L Chloride (101-111) mmol/L Carbon Dioxide (22-32) mmol/L Anion Gap (2-11) mmol/L BUN (6-24) mg/dL Creatinine (0.51-0.95) mg/dL Est GFR ( Amer) (>60) Est GFR (Non-Af Amer) (>60) BUN/Creatinine Ratio (8-20) Glucose (70-100) mg/dL Lactic Acid 2.2 H* (0.5-2.0) mmol/L Calcium (8.6-10.3) mg/dL Magnesium (1.9-2.7) mg/dL Total Bilirubin (0.2-1.0) mg/dL AST (13-39) U/L ALT (7-52) U/L Alkaline Phosphatase (34-104) U/L Ammonia 28 (16-53) mol/L Total Creatine Kinase (10-223) U/L Troponin I (<0.04) ng/mL C-Reactive Protein (< 5.00) mg/L B-Natriuretic Peptide 42 ( - 100) pg/mL Total Protein (6.4-8.9) g/dL Albumin (3.2-5.2) g/dL Globulin (2-4) g/dL Albumin/Globulin Ratio (1-3) Lipase (11.0-82.0) U/L Blood Type B Positive Antibody Screen Negative Crossmatch See Detail Microbiology and Other Data: Microbiology 08/22/16 09:40 Gram Stain - Final Misc Fluid (See Comment) - Other Body Fluid Culture - Final Normal Silva 08/24/16 23:20 Stool Occult Blood (CHARAN) - Final Stool 08/19/16 16:42 CLOtest - Final Gastric Antrum 08/18/16 14:45 Nasal Screen MRSA (PCR)(CHARAN) - Final Nasal Mrsa Negative Assess/Plan/Problems-Billing Assessment: Ms. Hill is a 76 y o female with a PMH of bipolar, ETOH abuse, HTN , CHF, anxiety/depression who presented to the Emergency department on 08/18/16 with c/o 1 week of black tarry stool found to have a Hgb 6 - Patient Problems (1) Acute blood loss anemia Comment: - upper GI bleed with noted large duodenal ulcers (noted on endoscopy 08/19) Hgb down to 4.1 on admission, total 5 units PRBCs now Hgb up to 7- Hgb continues to trend down it is possible she is continuing to ooze or has another source of bleeding. Hgb today stable at 7. Stool positive blood 08/24 - Trend HH Q6hr Spoke to Dr. Montes who will round on the pt today - agrees with plan to trend HH and monitor. continue PPI. (2) DVT of axillary vein, acute right Comment: - RUE thrombosis of the right basilic vein, branchial vein and axillary with thrombus surrounding the PICC line. Also noted partial thrombosis of the right subclavian vein. - Side consulted Dr. Woo who recommend pulling PICC line and anticoagulating, and the patient is at a small increased risk for PE. However in the setting of GI Dr. Montes strongly recommends against any anticoag or chemical DVTp, NO anticoagulation at this time as she is too high kane (3) Bipolar 1 disorder Comment: - supportive tx - continue effexor (4) CHF (congestive heart failure) Comment: h/o diastolic dysfunction. Not active during this hospital stay. (5) HTN (hypertension) Comment: - not an acute issue - last echo on file 2013 - EF 55% (6) DVT prophylaxis Comment: SCDs Status and Disposition: inpatient with GI bleed, now with RUE DVT.
[2016-08-25 12:32] LABS: Hematocrit 22 % (35-47); Hemoglobin 7.3 g/dl (12.0-16.0)
[2016-08-25] MEDS: Pantoprazole IV* 40 MG IV SCH (13:04)
[2016-08-25] MEDS: NS 0.45% 1000 ML BAG* 1,000 ML IV SCH (15:31)
[2016-08-25] MEDS: Atorvastatin* 20 MG TAB PO SCH (16:49)
[2016-08-25 20:07] LABS: Hematocrit 24 % (35-47); Hemoglobin 7.8 g/dl (12.0-16.0)
[2016-08-25] MEDS: Omeprazole CAP* 20 MG PO SCH (20:31)
[2016-08-26] MEDS: Acetaminophen TAB* 325 MG PO PRN (05:27)
[2016-08-26 06:32] LABS: Hematocrit 24 % (35-47); Hemoglobin 7.9 g/dl (12.0-16.0); Mean Corpuscular HGB Conc 33 g/dl (31-36); Mean Corpuscular Hemoglobin 28 pg (27-31); Mean Corpuscular Volume 86 fL (80-97); Mean Platelet Volume 8 um3 (7.4-10.4); Red Blood Count 2.83 10^6/ul (4.0-5.4); Red Cell Distribution Width 19 % (10.5-15); White Blood Count 6.8 10^3/ul (3.5-10.8)
[2016-08-26 06:55] LABS: BUN/Creatinine Ratio 14.8 (8-20); Calcium 8.4 mg/dL (8.6-10.3); EGFR Non-African American 95.6 (>60); Potassium 3.5 mmol/L (3.5-5.0)
--- NOTE | 2016-08-26 10:10 | PN ---
Subjective Date of Service: 08/26/16 Interval History: patient remembered me from yesterday and states she remembers talking to Dr. Montes last evening. She states "Im doing much better today". She offers no complaints. Denies fever or chills. No RUE pain, notes some swelling in her arm. Denies SOB or CP. No blood in stool or melena. Denies abdominal pain. Objective Active Medications: Acetaminophen (Tylenol Tab*) 650 mg PO Q4H PRN PRN Reason: FEVER/PAIN Last Admin: 08/26/16 05:27 Dose: 650 mg Albuterol (Ventolin Hfa Inhaler*) 2 puff INH Q6H PRN PRN Reason: SOB/WHEEZING Atorvastatin Calcium (Lipitor*) 20 mg PO 1700 [facility] Last Admin: 08/25/16 16:49 Dose: 20 mg Benzonatate (Tessalon Cap*) 200 mg PO TID PRN PRN Reason: COUGH Last Admin: 08/25/16 08:18 Dose: 200 mg Docusate Sodium (Colace Cap*) 100 mg PO BID PRN PRN Reason: CONSTIPATION Gabapentin (Neurontin Cap(*)) 300 mg PO BID [facility] Last Admin: 08/25/16 20:31 Dose: 300 mg Haloperidol Lactate (Haldol Inj Iv/Im*) 5 mg IV SLOW PU Q4H PRN PRN Reason: AGITATION Last Admin: 08/23/16 17:10 Dose: 5 mg Heparin Sodium (Porcine) (Heparin Flush Picc/Ml/Cvc(*)) 1 ml IV FLUSH 0600, 1800 [facility] PRN Reason: Protocol Last Admin: 08/26/16 05:54 Dose: Not Given Sodium Chloride (Ns 0.45% 1000 Ml Bag*) 1,000 mls @ 50 mls/hr IV PER RATE [facility] Last Admin: 08/25/16 15:31 Dose: 50 mls/hr Lorazepam (Ativan Inj*) 1 mg IV PUSH Q4H PRN PRN Reason: ANXIETY Metoprolol Tartrate (Lopressor Tab*) 12.5 mg PO Q12HR [facility] Last Admin: 08/25/16 20:30 Dose: 12.5 mg Omeprazole (Prilosec Cap*) 40 mg PO BID [facility] Last Admin: 08/25/16 20:31 Dose: 40 mg Venlafaxine HCl (Effexor Xr Cap*) 37.5 mg PO BID [facility] Last Admin: 08/25/16 20:30 Dose: 37.5 mg Vital Signs 08/25/16 08/25/16 08/25/16 10:19 11:37 12:53 Temperature 98.2 F Pulse Rate 75 Respiratory 17 16 Rate Blood Pressure 136/71 (mmHg) O2 Sat by Pulse 100 98 Oximetry 08/25/16 08/25/16 08/25/16 13:38 15:46 19:42 Temperature 98.1 F Pulse Rate 80 Respiratory 16 16 Rate Blood Pressure 141/79 (mmHg) O2 Sat by Pulse 97 96 Oximetry 08/25/16 08/25/16 08/25/16 20:20 20:31 22:31 Temperature 97.9 F Pulse Rate 86 Respiratory 18 16 16 Rate Blood Pressure 148/80 (mmHg) O2 Sat by Pulse 94 Oximetry 08/25/16 08/26/16 08/26/16 23:23 00:00 02:59 Temperature 99.7 F 99.3 F Pulse Rate 97 81 Respiratory 16 16 Rate Blood Pressure 156/88 144/80 (mmHg) O2 Sat by Pulse 96 96 95 Oximetry Oxygen Devices in Use Now: None Appearance: alert and oriented to self, place, year, president. mild dementia? wifty Eyes: No Scleral Icterus, PERRLA Ears/Nose/Mouth/Throat: NL Teeth, Lips, Gums, Clear Oropharnyx, Mucous Membranes Moist Neck: NL Appearance and Movements; NL JVP, Trachea Midline Respiratory: Symmetrical Chest Expansion and Respiratory Effort, Clear to Auscultation Cardiovascular: NL Sounds; No Murmurs; No JVD, RRR Abdominal: NL Sounds; No Tenderness; No Distention Lymphatic: No Cervical Adenopathy Extremities: No Clubbing, Cyanosis, - - Right extremity noted 1-2+ edema - no tenderness, noted ecchymosis on forearm Skin: No Nodules or Sclerosis Neurological: Alert and Oriented x 3, NL Sensation, NL Muscle Strength and Tone Lines/Tubes/Other Access: Clean, Dry and Intact Peripheral IV Nutrition: Taking PO's Result Diagrams: 08/26/16 06:02 08/26/16 06:02 Additional Lab and Data: Lab Results 08/18/16 08/18/16 08/18/16 Range/Units 12:55 12:55 12:55 WBC 11.2 H (3.5-10.8) 10^3/ul RBC 1.83 L (4.0-5.4) 10^6/ul Hgb 6.0 L* (12.0-16.0) g/dl Hct 19 L (35-47) % MCV 102 H (80-97) fL MCH 33 H (27-31) pg MCHC 32 (31-36) g/dl RDW 14 (10.5-15) % Plt Count 388 (150-450) 10^3/ul MPV 7 L (7.4-10.4) um3 Neut % (Auto) 76.8 (38-83) % Lymph % (Auto) 17.8 L (25-47) % [place] % (Auto) 3.9 (1-9) % Eos % (Auto) 0.8 (0-6) % Baso % (Auto) 0.7 (0-2) % Absolute Neuts (auto) 8.6 H (1.5-7.7) 10^3/ul Absolute Lymphs (auto) 2.0 (1.0-4.8) 10^3/ul Absolute Monos (auto) 0.4 (0-0.8) 10^3/ul Absolute Eos (auto) 0.1 (0-0.6) 10^3/ul Absolute Basos (auto) 0.1 (0-0.2) 10^3/ul Absolute Nucleated RBC 0.01 10^3/ul Nucleated RBC % 0 INR (Anticoag Therapy) 0.98 (0.89-1.11) APTT 29.7 (26.0-36.3) seconds Sodium 136 (133-145) mmol/L Potassium 4.7 (3.5-5.0) mmol/L Chloride 110 (101-111) mmol/L Carbon Dioxide 14 L* (22-32) mmol/L Anion Gap 12 H (2-11) mmol/L BUN 65 H (6-24) mg/dL Creatinine 1.21 H (0.51-0.95) mg/dL Est GFR ( Amer) 55.8 (>60) Est GFR (Non-Af Amer) 43.4 (>60) BUN/Creatinine Ratio 53.7 H (8-20) Glucose 146 H (70-100) mg/dL Lactic Acid (0.5-2.0) mmol/L Calcium 8.8 (8.6-10.3) mg/dL Magnesium 1.6 L (1.9-2.7) mg/dL Total Bilirubin 0.20 (0.2-1.0) mg/dL AST 17 (13-39) U/L ALT 14 (7-52) U/L Alkaline Phosphatase 28 L (34-104) U/L Ammonia (16-53) mol/L Total Creatine Kinase 39 (10-223) U/L Troponin I 0.00 (<0.04) ng/mL C-Reactive Protein 6.16 H (< 5.00) mg/L B-Natriuretic Peptide ( - 100) pg/mL Total Protein 5.9 L (6.4-8.9) g/dL Albumin 3.3 (3.2-5.2) g/dL Globulin 2.6 (2-4) g/dL Albumin/Globulin Ratio 1.3 (1-3) Lipase 21 (11.0-82.0) U/L Blood Type Antibody Screen Crossmatch 08/18/16 08/18/16 08/18/16 Range/Units 12:55 12:55 12:55 WBC (3.5-10.8) 10^3/ul RBC (4.0-5.4) 10^6/ul Hgb (12.0-16.0) g/dl Hct (35-47) % MCV (80-97) fL MCH (27-31) pg MCHC (31-36) g/dl RDW (10.5-15) % Plt Count (150-450) 10^3/ul MPV (7.4-10.4) um3 Neut % (Auto) (38-83) % Lymph % (Auto) (25-47) % [place] % (Auto) (1-9) % Eos % (Auto) (0-6) % Baso % (Auto) (0-2) % Absolute Neuts (auto) (1.5-7.7) 10^3/ul Absolute Lymphs (auto) (1.0-4.8) 10^3/ul Absolute Monos (auto) (0-0.8) 10^3/ul Absolute Eos (auto) (0-0.6) 10^3/ul Absolute Basos (auto) (0-0.2) 10^3/ul Absolute Nucleated RBC 10^3/ul Nucleated RBC % INR (Anticoag Therapy) (0.89-1.11) APTT (26.0-36.3) seconds Sodium (133-145) mmol/L Potassium (3.5-5.0) mmol/L Chloride (101-111) mmol/L Carbon Dioxide (22-32) mmol/L Anion Gap (2-11) mmol/L BUN (6-24) mg/dL Creatinine (0.51-0.95) mg/dL Est GFR ( Amer) (>60) Est GFR (Non-Af Amer) (>60) BUN/Creatinine Ratio (8-20) Glucose (70-100) mg/dL Lactic Acid 2.2 H* (0.5-2.0) mmol/L Calcium (8.6-10.3) mg/dL Magnesium (1.9-2.7) mg/dL Total Bilirubin (0.2-1.0) mg/dL AST (13-39) U/L ALT (7-52) U/L Alkaline Phosphatase (34-104) U/L Ammonia 28 (16-53) mol/L Total Creatine Kinase (10-223) U/L Troponin I (<0.04) ng/mL C-Reactive Protein (< 5.00) mg/L B-Natriuretic Peptide 42 ( - 100) pg/mL Total Protein (6.4-8.9) g/dL Albumin (3.2-5.2) g/dL Globulin (2-4) g/dL Albumin/Globulin Ratio (1-3) Lipase (11.0-82.0) U/L Blood Type B Positive Antibody Screen Negative Crossmatch See Detail Microbiology and Other Data: Microbiology 08/22/16 09:40 Gram Stain - Final Misc Fluid (See Comment) - Other Body Fluid Culture - Final Normal Silva 08/24/16 23:20 Stool Occult Blood (CHARAN) - Final Stool 08/19/16 16:42 CLOtest - Final Gastric Antrum 08/18/16 14:45 Nasal Screen MRSA (PCR)(CHARAN) - Final Nasal Mrsa Negative Assess/Plan/Problems-Billing Assessment: Ms. Hill is a 76 y o female with a PMH of bipolar, ETOH abuse, HTN , CHF, anxiety/depression who presented to the Emergency department on 08/18/16 with c/o 1 week of black tarry stool found to have a Hgb 6 - Patient Problems (1) Acute blood loss anemia Comment: - upper GI bleed with noted large duodenal ulcers (noted on endoscopy 08/19) Hgb down to 4.1 on admission, total 5 units PRBCs. Concerned pt was continuing to ooze or has another source of bleeding but Hgb has been stable at 7. Stool positive blood 08/24. - Dr. Montes re-rounded on the pt yesterday 08/25 - agrees with plan to trend HH and monitor - recommends no AC for acute DVT due to risk of bleeding. continue PPI. (2) DVT of axillary vein, acute right Comment: - RUE thrombosis of the right basilic vein, branchial vein and axillary with thrombus surrounding the PICC line. Also noted partial thrombosis of the right subclavian vein. - Side consulted Dr. Woo who recommend pulling PICC line and anticoagulating. However in the setting of GI Dr. Montes strongly recommends against any anticoag or chemical DVTp, NO anticoagulation at this time as she is too high risk (3) Bipolar 1 disorder Comment: - supportive tx - continue effexor (4) CHF (congestive heart failure) Comment: h/o diastolic dysfunction. Not active during this hospital stay. (5) HTN (hypertension) Comment: - not an acute issue - last echo on file 2013 - EF 55% (6) DVT prophylaxis Comment: SCDs Status and Disposition: inpatient with GI bleed, now with RUE DVT. Lives alone, PT/OT, social work consults pending.
[2016-08-26] MEDS: Venlafaxine EXT RELEASE CAP* 37.5 MG PO SCH ×2 (10:43→20:53)
[2016-08-26] MEDS: Gabapentin CAP(*) 300 MG PO SCH ×2 (10:43→20:52)
[2016-08-26] MEDS: Metoprolol Tartrate TAB* 25 MG PO SCH ×2 (10:43→20:53)
[2016-08-26] MEDS: Omeprazole CAP* 20 MG PO SCH ×2 (10:45→20:52)
[2016-08-26] MEDS: Haloperidol INJ IV/IM* 5 MG/ML AMP IV SLOW PU PRN (12:26)
[2016-08-26] MEDS: Atorvastatin* 20 MG TAB PO SCH (18:29)
[2016-08-27 05:30] LABS: Hematocrit 23 % (35-47); Hemoglobin 7.4 g/dl (12.0-16.0); Mean Corpuscular HGB Conc 32 g/dl (31-36); Mean Corpuscular Hemoglobin 28 pg (27-31); Mean Corpuscular Volume 86 fL (80-97); Mean Platelet Volume 8 um3 (7.4-10.4); Red Blood Count 2.64 10^6/ul (4.0-5.4); Red Cell Distribution Width 18 % (10.5-15); White Blood Count 5.9 10^3/ul (3.5-10.8)
[2016-08-27 05:42] LABS: Calcium 8.2 mg/dL (8.6-10.3); EGFR African American 125.3 (>60); EGFR Non-African American 97.5 (>60); Potassium 3.4 mmol/L (3.5-5.0)
[2016-08-27] MEDS ORDERED: Potassium Chlor TAB* 20 MEQ TAB.ER PO ONE (07:54)
[2016-08-27] MEDS: Venlafaxine EXT RELEASE CAP* 37.5 MG PO SCH ×2 (10:09→20:21)
[2016-08-27] MEDS: Metoprolol Tartrate TAB* 25 MG PO SCH ×2 (10:09→20:19)
[2016-08-27] MEDS: Omeprazole CAP* 20 MG PO SCH ×2 (10:09→20:21)
[2016-08-27] MEDS: Gabapentin CAP(*) 300 MG PO SCH ×2 (10:09→20:20)
[2016-08-27 11:53] LABS: Hematocrit 25 % (35-47); Hemoglobin 8.1 g/dl (12.0-16.0)
[2016-08-27] MEDS: Atorvastatin* 20 MG TAB PO SCH (17:14)
--- NOTE | 2016-08-27 19:17 | PN ---
Subjective Date of Service: 08/27/16 Interval History: Patient seen and examined at bedside. She offers no complaints and denies CP, RUE pain, SOB, abd pain, n/v, blood in stool or melena. She reports feeling better. She states that she lives at home and does not require any assistance. Nursing reports that she has been appropriate in her interactions. Family History: Unchanged from Admission Social History: Unchanged from Admission Past Medical History: Unchanged from Admission Objective Active Medications: Acetaminophen (Tylenol Tab*) 650 mg PO Q4H PRN PRN Reason: FEVER/PAIN Last Admin: 08/26/16 05:27 Dose: 650 mg Albuterol (Ventolin Hfa Inhaler*) 2 puff INH Q6H PRN PRN Reason: SOB/WHEEZING Atorvastatin Calcium (Lipitor*) 20 mg PO 1700 [facility] Last Admin: 08/27/16 17:14 Dose: 20 mg Benzonatate (Tessalon Cap*) 200 mg PO TID PRN PRN Reason: COUGH Last Admin: 08/25/16 08:18 Dose: 200 mg Docusate Sodium (Colace Cap*) 100 mg PO BID PRN PRN Reason: CONSTIPATION Gabapentin (Neurontin Cap(*)) 300 mg PO BID [facility] Last Admin: 08/27/16 10:09 Dose: 300 mg Haloperidol Lactate (Haldol Inj Iv/Im*) 5 mg IV SLOW PU Q4H PRN PRN Reason: AGITATION Last Admin: 08/26/16 12:26 Dose: 5 mg Lorazepam (Ativan Inj*) 1 mg IV PUSH Q4H PRN PRN Reason: ANXIETY Metoprolol Tartrate (Lopressor Tab*) 12.5 mg PO Q12HR [facility] Last Admin: 08/27/16 10:09 Dose: 12.5 mg Omeprazole (Prilosec Cap*) 40 mg PO BID [facility] Last Admin: 08/27/16 10:09 Dose: 40 mg Venlafaxine HCl (Effexor Xr Cap*) 37.5 mg PO BID [facility] Last Admin: 08/27/16 10:09 Dose: 37.5 mg Vital Signs 08/26/16 08/26/16 08/26/16 19:52 20:00 20:52 Temperature 98.2 F Pulse Rate 91 Respiratory 16 16 16 Rate Blood Pressure 144/77 (mmHg) O2 Sat by Pulse 100 Oximetry 08/26/16 08/27/16 08/27/16 22:52 00:00 02:22 Temperature 98.0 F Pulse Rate 90 Respiratory 16 20 Rate Blood Pressure 149/80 (mmHg) O2 Sat by Pulse 95 95 Oximetry 08/27/16 08/27/16 08/27/16 03:40 04:30 08:00 Temperature 98.1 F Pulse Rate 90 69 Respiratory 18 20 18 Rate Blood Pressure 139/81 (mmHg) O2 Sat by Pulse 96 99 97 Oximetry 08/27/16 08/27/16 08/27/16 09:04 10:09 10:11 Temperature 97.8 F Pulse Rate 67 80 Respiratory 14 18 20 Rate Blood Pressure 135/59 (mmHg) O2 Sat by Pulse 96 97 Oximetry 08/27/16 08/27/16 08/27/16 12:09 15:59 16:00 Temperature 98.0 F Pulse Rate 77 Respiratory 18 20 Rate Blood Pressure 134/58 (mmHg) O2 Sat by Pulse 96 96 Oximetry 08/27/16 18:56 Temperature Pulse Rate Respiratory 20 Rate Blood Pressure (mmHg) O2 Sat by Pulse Oximetry Oxygen Devices in Use Now: None Appearance: Female patient, lying in bed, in NAD Eyes: PERRLA Ears/Nose/Mouth/Throat: Clear Oropharnyx, Mucous Membranes Moist Neck: NL Appearance and Movements; NL JVP Respiratory: Symmetrical Chest Expansion and Respiratory Effort, Clear to Auscultation Cardiovascular: NL Sounds; No Murmurs; No JVD, RRR Abdominal: NL Sounds; No Tenderness; No Distention - BS present Extremities: No Clubbing, Cyanosis, - - RUE with 2+ edema, no tenderness Skin: No Nodules or Sclerosis Neurological: Alert and Oriented x 3, NL Sensation, NL Muscle Strength and Tone Lines/Tubes/Other Access: Clean, Dry and Intact Peripheral IV Nutrition: Taking PO's Result Diagrams: 08/27/16 11:35 08/27/16 04:43 Additional Lab and Data: Lab Results 08/18/16 08/18/16 08/18/16 Range/Units 12:55 12:55 12:55 WBC 11.2 H (3.5-10.8) 10^3/ul RBC 1.83 L (4.0-5.4) 10^6/ul Hgb 6.0 L* (12.0-16.0) g/dl Hct 19 L (35-47) % MCV 102 H (80-97) fL MCH 33 H (27-31) pg MCHC 32 (31-36) g/dl RDW 14 (10.5-15) % Plt Count 388 (150-450) 10^3/ul MPV 7 L (7.4-10.4) um3 Neut % (Auto) 76.8 (38-83) % Lymph % (Auto) 17.8 L (25-47) % [place] % (Auto) 3.9 (1-9) % Eos % (Auto) 0.8 (0-6) % Baso % (Auto) 0.7 (0-2) % Absolute Neuts (auto) 8.6 H (1.5-7.7) 10^3/ul Absolute Lymphs (auto) 2.0 (1.0-4.8) 10^3/ul Absolute Monos (auto) 0.4 (0-0.8) 10^3/ul Absolute Eos (auto) 0.1 (0-0.6) 10^3/ul Absolute Basos (auto) 0.1 (0-0.2) 10^3/ul Absolute Nucleated RBC 0.01 10^3/ul Nucleated RBC % 0 INR (Anticoag Therapy) 0.98 (0.89-1.11) APTT 29.7 (26.0-36.3) seconds Sodium 136 (133-145) mmol/L Potassium 4.7 (3.5-5.0) mmol/L Chloride 110 (101-111) mmol/L Carbon Dioxide 14 L* (22-32) mmol/L Anion Gap 12 H (2-11) mmol/L BUN 65 H (6-24) mg/dL Creatinine 1.21 H (0.51-0.95) mg/dL Est GFR ( Amer) 55.8 (>60) Est GFR (Non-Af Amer) 43.4 (>60) BUN/Creatinine Ratio 53.7 H (8-20) Glucose 146 H (70-100) mg/dL Lactic Acid (0.5-2.0) mmol/L Calcium 8.8 (8.6-10.3) mg/dL Magnesium 1.6 L (1.9-2.7) mg/dL Total Bilirubin 0.20 (0.2-1.0) mg/dL AST 17 (13-39) U/L ALT 14 (7-52) U/L Alkaline Phosphatase 28 L (34-104) U/L Ammonia (16-53) mol/L Total Creatine Kinase 39 (10-223) U/L Troponin I 0.00 (<0.04) ng/mL C-Reactive Protein 6.16 H (< 5.00) mg/L B-Natriuretic Peptide ( - 100) pg/mL Total Protein 5.9 L (6.4-8.9) g/dL Albumin 3.3 (3.2-5.2) g/dL Globulin 2.6 (2-4) g/dL Albumin/Globulin Ratio 1.3 (1-3) Lipase 21 (11.0-82.0) U/L Blood Type Antibody Screen Crossmatch 08/18/16 08/18/16 08/18/16 Range/Units 12:55 12:55 12:55 WBC (3.5-10.8) 10^3/ul RBC (4.0-5.4) 10^6/ul Hgb (12.0-16.0) g/dl Hct (35-47) % MCV (80-97) fL MCH (27-31) pg MCHC (31-36) g/dl RDW (10.5-15) % Plt Count (150-450) 10^3/ul MPV (7.4-10.4) um3 Neut % (Auto) (38-83) % Lymph % (Auto) (25-47) % [place] % (Auto) (1-9) % Eos % (Auto) (0-6) % Baso % (Auto) (0-2) % Absolute Neuts (auto) (1.5-7.7) 10^3/ul Absolute Lymphs (auto) (1.0-4.8) 10^3/ul Absolute Monos (auto) (0-0.8) 10^3/ul Absolute Eos (auto) (0-0.6) 10^3/ul Absolute Basos (auto) (0-0.2) 10^3/ul Absolute Nucleated RBC 10^3/ul Nucleated RBC % INR (Anticoag Therapy) (0.89-1.11) APTT (26.0-36.3) seconds Sodium (133-145) mmol/L Potassium (3.5-5.0) mmol/L Chloride (101-111) mmol/L Carbon Dioxide (22-32) mmol/L Anion Gap (2-11) mmol/L BUN (6-24) mg/dL Creatinine (0.51-0.95) mg/dL Est GFR ( Amer) (>60) Est GFR (Non-Af Amer) (>60) BUN/Creatinine Ratio (8-20) Glucose (70-100) mg/dL Lactic Acid 2.2 H* (0.5-2.0) mmol/L Calcium (8.6-10.3) mg/dL Magnesium (1.9-2.7) mg/dL Total Bilirubin (0.2-1.0) mg/dL AST (13-39) U/L ALT (7-52) U/L Alkaline Phosphatase (34-104) U/L Ammonia 28 (16-53) mol/L Total Creatine Kinase (10-223) U/L Troponin I (<0.04) ng/mL C-Reactive Protein (< 5.00) mg/L B-Natriuretic Peptide 42 ( - 100) pg/mL Total Protein (6.4-8.9) g/dL Albumin (3.2-5.2) g/dL Globulin (2-4) g/dL Albumin/Globulin Ratio (1-3) Lipase (11.0-82.0) U/L Blood Type B Positive Antibody Screen Negative Crossmatch See Detail Microbiology and Other Data: Microbiology 08/22/16 09:40 Gram Stain - Final Misc Fluid (See Comment) - Other Body Fluid Culture - Final Normal Silva 08/24/16 23:20 Stool Occult Blood (CHARAN) - Final Stool 08/19/16 16:42 CLOtest - Final Gastric Antrum 08/18/16 14:45 Nasal Screen MRSA (PCR)([facility]) - Final Nasal Mrsa Negative Assess/Plan/Problems-Billing Assessment: Ms. Hill is a 76 y o female with a PMH of bipolar, ETOH abuse, HTN , CHF, anxiety/depression who presented to the Emergency department on 08/18/16 with c/o 1 week of black tarry stool found to have a Hgb 6 - Patient Problems (1) Acute blood loss anemia Code(s): D62 - ACUTE POSTHEMORRHAGIC ANEMIA Comment: - HH improved at 8.1 and 25 today - Upper GI bleed with noted large duodenal ulcers (noted on endoscopy 08/19) Hgb down to 4.1 on admission, total 5 units PRBCs. Concerned pt was continuing to ooze or has another source of bleeding but Hgb has been stable at 7. Stool positive blood 08/24. - Dr. Montes re-rounded on the pt yesterday 08/25 - agrees with plan to trend HH and monitor - recommends no AC for acute DVT due to risk of bleeding. - Continue PPI. (2) DVT of axillary vein, acute right Code(s): I82.A11 - ACUTE EMBOLISM AND THROMBOSIS OF RIGHT AXILLARY VEIN Comment: - RUE thrombosis of the right basilic vein, branchial vein and axillary with thrombus surrounding the PICC line. Also noted partial thrombosis of the right subclavian vein. - Side consulted Dr. Woo who recommend pulling PICC line and anticoagulating. However in the setting of GI Dr. Montes strongly recommends against any anticoagulation or chemical DVT prophylaxis. - NO anticoagulation at this time as she is too high risk. (3) Bipolar 1 disorder Code(s): F31.9 - BIPOLAR DISORDER, UNSPECIFIED Comment: - Supportive tx - Continue Effexor (4) CHF (congestive heart failure) Code(s): I50.9 - HEART FAILURE, UNSPECIFIED Comment: H/o diastolic dysfunction. Not active during this hospital stay. (5) HTN (hypertension) Code(s): I10 - ESSENTIAL (PRIMARY) HYPERTENSION Comment: - not an acute issue - last echo on file 2013 - EF 55% (6) DVT prophylaxis Code(s): [id number] - Comment: SCDs Status and Disposition: inpatient with GI bleed, now with RUE DVT. Lives alone, PT/OT, social work consults pending. Patient needs to participate in PT/OT prior to d/c.
[2016-08-28] MEDS: Acetaminophen TAB* 325 MG PO PRN (04:06)
[2016-08-28 06:05] LABS: Hematocrit 24 % (35-47); Hemoglobin 7.8 g/dl (12.0-16.0); Mean Corpuscular HGB Conc 32 g/dl (31-36); Mean Corpuscular Hemoglobin 28 pg (27-31); Mean Corpuscular Volume 85 fL (80-97); Mean Platelet Volume 8 um3 (7.4-10.4); Red Blood Count 2.83 10^6/ul (4.0-5.4); Red Cell Distribution Width 18 % (10.5-15); White Blood Count 7.4 10^3/ul (3.5-10.8)
[2016-08-28 06:18] LABS: BUN/Creatinine Ratio 12.1 (8-20); Calcium 8.3 mg/dL (8.6-10.3); EGFR African American 112.3 (>60); EGFR Non-African American 87.3 (>60); Potassium 3.8 mmol/L (3.5-5.0)
[2016-08-28] MEDS: Omeprazole CAP* 20 MG PO SCH ×2 (09:02→20:58)
[2016-08-28] MEDS: Metoprolol Tartrate TAB* 25 MG PO SCH ×2 (09:02→20:59)
[2016-08-28] MEDS: Gabapentin CAP(*) 300 MG PO SCH ×2 (09:02→20:58)
[2016-08-28] MEDS: Venlafaxine EXT RELEASE CAP* 37.5 MG PO SCH ×2 (09:03→20:58)
--- NOTE | 2016-08-28 16:37 | PN ---
Subjective Date of Service: 08/28/16 Interval History: Patient seen and examined at bedside. Pt states that she is feeling well, she feels better and believes that she can care for herself at home. Denies fever, chills, shortness of breath, chest discomfort, N/V/D. Pt complains of a "stiff neck" today. Pt feels that she is able to care for herself at home. Tele: Sinus jean to Sinus rhythm, rate 50-70's. Few missed beats. Family History: Unchanged from Admission Social History: Unchanged from Admission Past Medical History: Unchanged from Admission Objective Active Medications: Acetaminophen (Tylenol Tab*) 650 mg PO Q4H PRN Reason: FEVER/PAIN Albuterol (Ventolin Hfa Inhaler*) 2 puff INH Q6H PRN Reason: SOB/WHEEZING Atorvastatin Calcium (Lipitor*) 20 mg PO 1700 [facility] Benzonatate (Tessalon Cap*) 200 mg PO TID PRN Reason: COUGH Docusate Sodium (Colace Cap*) 100 mg PO BID PRN Reason: CONSTIPATION Gabapentin (Neurontin Cap(*)) 300 mg PO BID [facility] Haloperidol Lactate (Haldol Inj Iv/Im*) 5 mg IV SLOW PU Q4H PRN Reason: AGITATION Lorazepam (Ativan Inj*) 1 mg IV PUSH Q4H PRN Reason: ANXIETY Metoprolol Tartrate (Lopressor Tab*) 12.5 mg PO Q12HR [facility] Omeprazole (Prilosec Cap*) 40 mg PO BID [facility] Venlafaxine HCl (Effexor Xr Cap*) 37.5 mg PO BID [facility] Vital Signs 08/27/16 08/27/16 08/27/16 18:56 19:39 20:20 Temperature 98.4 F Pulse Rate 87 Respiratory 20 18 16 Rate Blood Pressure 138/71 (mmHg) O2 Sat by Pulse 96 Oximetry 08/27/16 08/27/16 08/28/16 22:20 23:13 00:00 Temperature Pulse Rate 80 Respiratory 16 20 Rate Blood Pressure (mmHg) O2 Sat by Pulse 94 95 Oximetry 08/28/16 08/28/16 08/28/16 00:13 03:40 04:14 Temperature 98.9 F 97.7 F 98.1 F Pulse Rate 84 73 82 Respiratory 20 20 20 Rate Blood Pressure 152/78 148/75 154/84 (mmHg) O2 Sat by Pulse 95 96 93 Oximetry 08/28/16 08/28/16 08/28/16 07:56 08:00 09:02 Temperature 99.0 F Pulse Rate 60 Respiratory 16 16 16 Rate Blood Pressure 152/70 (mmHg) O2 Sat by Pulse 96 96 Oximetry 08/28/16 10:40 Temperature Pulse Rate 59 Respiratory 14 Rate Blood Pressure (mmHg) O2 Sat by Pulse 99 Oximetry Oxygen Devices in Use Now: None Appearance: NAD, laying in bed. Eyes: No Scleral Icterus, PERRLA Ears/Nose/Mouth/Throat: NL Teeth, Lips, Gums, Mucous Membranes Moist Neck: NL Appearance and Movements; NL JVP, Trachea Midline Respiratory: Symmetrical Chest Expansion and Respiratory Effort, Clear to Auscultation Cardiovascular: NL Sounds; No Murmurs; No JVD, RRR Abdominal: NL Sounds; No Tenderness; No Distention - Bowel sounds present Extremities: - - Right UE edema Neurological: Alert and Oriented x 3, NL Muscle Strength and Tone Lines/Tubes/Other Access: Clean, Dry and Intact Peripheral IV - site benign Nutrition: Taking PO's Result Diagrams: 08/28/16 05:35 08/28/16 05:36 Additional Lab and Data: Microbiology and Other Data: Microbiology 08/22/16 09:40 Gram Stain - Final Misc Fluid (See Comment) - Other Body Fluid Culture - Final Normal Silva 08/24/16 23:20 Stool Occult Blood (CHARAN) - Final Stool 08/19/16 16:42 CLOtest - Final Gastric Antrum 08/18/16 14:45 Nasal Screen MRSA (PCR)([facility]) - Final Nasal Mrsa Negative Assess/Plan/Problems-Billing Assessment: Ms. Hill is a 76 y o female with a PMH of bipolar, ETOH abuse, HTN, CHF, anxiety/depression who presented to the Emergency department on 08/18/16 with c/ o 1 week of black tarry stool found to have a Hgb 6 - Patient Problems (1) Acute blood loss anemia Code(s): D62 - ACUTE POSTHEMORRHAGIC ANEMIA SNOMED Code(s): 546878423 Comment: - HH stable - Upper GI bleed with noted large duodenal ulcers (noted on endoscopy 08/19) Hgb down to 4.1 on admission, total 5 units PRBCs. Concerned pt was continuing to ooze or has another source of bleeding but Hgb has been stable. Stool positive blood 08/24. - Dr. Montes re-rounded on the pt 08/25 - agrees with plan to trend HH and monitor - recommends no AC for acute DVT due to risk of bleeding. - Continue PPI. (2) DVT of axillary vein, acute right Code(s): I82.A11 - ACUTE EMBOLISM AND THROMBOSIS OF RIGHT AXILLARY VEIN SNOMED Code(s): 032691826803023 Comment: - RUE thrombosis of the right basilic vein, branchial vein and axillary with thrombus surrounding the PICC line. Also noted partial thrombosis of the right subclavian vein. - Side consulted Dr. Woo who recommend pulling PICC line and anticoagulating. However in the setting of a GI bleed Dr. Montes strongly recommends against any anticoagulation or chemical DVT prophylaxis. - NO anticoagulation at this time as she is too high risk. (3) Bipolar 1 disorder Code(s): F31.9 - BIPOLAR DISORDER, UNSPECIFIED SNOMED Code(s): 479984569 Comment: - Supportive tx - Continue Effexor (4) CHF (congestive heart failure) Code(s): I50.9 - HEART FAILURE, UNSPECIFIED SNOMED Code(s): 86795210 Comment: - H/o diastolic dysfunction. - Not active during this hospital stay. (5) HTN (hypertension) Code(s): I10 - ESSENTIAL (PRIMARY) HYPERTENSION SNOMED Code(s): 61174969 Comment: - Not an acute issue - SBP 130-150's - Last echo on file 2013 - EF 55% (6) DVT prophylaxis Code(s): NRZ4401 - SNOMED Code(s): 061466766 Comment: SCDs (7) Full code status Code(s): Z78.9 - OTHER SPECIFIED HEALTH STATUS SNOMED Code(s): 453986442 Status and Disposition: Inpatient with GI bleed, now with RUE DVT. Lives alone, PT/OT, social work consults pending. Patient needs to participate in PT/OT prior to d/c.
[2016-08-28] MEDS: Atorvastatin* 20 MG TAB PO SCH (18:24)
[2016-08-29] MEDS: Omeprazole CAP* 20 MG PO SCH ×2 (09:44→21:32)
[2016-08-29] MEDS: Gabapentin CAP(*) 300 MG PO SCH ×2 (09:44→21:33)
[2016-08-29] MEDS: Metoprolol Tartrate TAB* 25 MG PO SCH ×2 (09:45→21:34)
[2016-08-29] MEDS: Venlafaxine EXT RELEASE CAP* 37.5 MG PO SCH ×2 (09:45→21:32)
[2016-08-29] MEDS: Acetaminophen TAB* 325 MG PO PRN ×2 (14:43→21:31)
[2016-08-29] MEDS: LORazepam INJ* 2 MG/ML 1 ML VIAL IV PUSH PRN (14:43)
--- NOTE | 2016-08-29 15:38 | PN ---
Subjective Date of Service: 08/29/16 Interval History: Patient seen and examined at bedside. Pt is drowsy at this time, d/t receiving Ativan. Denies fever, chills, shortness of breath, chest discomfort, N/V/D. Tele: Sinus jean to rhythm, rate 50-60's. Family History: Unchanged from Admission Social History: Unchanged from Admission Past Medical History: Unchanged from Admission Objective Active Medications: Acetaminophen (Tylenol Tab*) 650 mg PO Q4H PRN Reason: FEVER/PAIN Albuterol (Ventolin Hfa Inhaler*) 2 puff INH Q6H PRN Reason: SOB/WHEEZING Atorvastatin Calcium (Lipitor*) 20 mg PO 1700 [facility] Benzonatate (Tessalon Cap*) 200 mg PO TID PRN Reason: COUGH Docusate Sodium (Colace Cap*) 100 mg PO BID PRN Reason: CONSTIPATION Gabapentin (Neurontin Cap(*)) 300 mg PO BID [facility] Lorazepam (Ativan Inj*) 1 mg IV PUSH Q4H PRN Reason: ANXIETY Metoprolol Tartrate (Lopressor Tab*) 12.5 mg PO Q12HR [facility] Omeprazole (Prilosec Cap*) 40 mg PO BID [facility] Venlafaxine HCl (Effexor Xr Cap*) 37.5 mg PO BID [facility] Vital Signs 08/28/16 08/28/16 08/28/16 16:00 19:49 20:00 Temperature 99.4 F Pulse Rate 85 Respiratory 16 18 Rate Blood Pressure 151/76 (mmHg) O2 Sat by Pulse 96 94 Oximetry 08/28/16 08/28/16 08/29/16 20:58 22:58 00:00 Temperature Pulse Rate Respiratory 18 17 Rate Blood Pressure (mmHg) O2 Sat by Pulse 96 Oximetry 08/29/16 08/29/16 08/29/16 00:06 02:58 04:04 Temperature 98.7 F 99.0 F Pulse Rate 78 80 83 Respiratory 20 20 20 Rate Blood Pressure 156/77 134/67 (mmHg) O2 Sat by Pulse 96 96 96 Oximetry 08/29/16 08/29/16 08/29/16 07:30 09:43 09:44 Temperature Pulse Rate 88 Respiratory 18 16 116 Rate Blood Pressure (mmHg) O2 Sat by Pulse 94 Oximetry 08/29/16 08/29/16 09:48 14:43 Temperature 97.3 F Pulse Rate 87 Respiratory 16 Rate Blood Pressure 155/84 (mmHg) O2 Sat by Pulse 94 Oximetry Oxygen Devices in Use Now: None Appearance: NAD, laying in bed. Eyes: No Scleral Icterus, PERRLA Ears/Nose/Mouth/Throat: NL Teeth, Lips, Gums, Mucous Membranes Moist Neck: NL Appearance and Movements; NL JVP, Trachea Midline Respiratory: Symmetrical Chest Expansion and Respiratory Effort, Clear to Auscultation Cardiovascular: NL Sounds; No Murmurs; No JVD, RRR Abdominal: NL Sounds; No Tenderness; No Distention, - - Bowel sounds present Extremities: No Edema Skin: No Rash or Ulcers Neurological: NL Muscle Strength and Tone, - - [place], Oriented to person and place Nutrition: Taking PO's Result Diagrams: 08/28/16 05:35 08/28/16 05:36 Additional Lab and Data: Microbiology and Other Data: Microbiology 08/22/16 09:40 Gram Stain - Final Misc Fluid (See Comment) - Other Body Fluid Culture - Final Normal Silva 08/24/16 23:20 Stool Occult Blood ([facility]AN) - Final Stool 08/19/16 16:42 CLOtest - Final Gastric Antrum 08/18/16 14:45 Nasal Screen MRSA (PCR)([facility]) - Final Nasal Mrsa Negative Assess/Plan/Problems-Billing Assessment: Ms. Hill is a 76 y o female with a PMH of bipolar, ETOH abuse, HTN, CHF, anxiety/depression who presented to the Emergency department on 08/18/16 with c/ o 1 week of black tarry stool found to have a Hgb 6 - Patient Problems (1) Acute blood loss anemia Code(s): D62 - ACUTE POSTHEMORRHAGIC ANEMIA SNOMED Code(s): 065623775 Comment: - HH stable - Upper GI bleed with noted large duodenal ulcers (noted on endoscopy 08/19) Hgb down to 4.1 on admission, total 5 units PRBCs. Concerned pt was continuing to ooze or has another source of bleeding but Hgb has been stable. Stool positive blood 08/24. - Dr. Montes re-rounded on the pt 08/25 - agrees with plan to trend HH and monitor - recommends no AC for acute DVT due to risk of bleeding. - Continue PPI. (2) DVT of axillary vein, acute right Code(s): I82.A11 - ACUTE EMBOLISM AND THROMBOSIS OF RIGHT AXILLARY VEIN SNOMED Code(s): 115547396183939 Comment: - RUE thrombosis of the right basilic vein, branchial vein and axillary with thrombus surrounding the PICC line. Also noted partial thrombosis of the right subclavian vein. - Side consulted Dr. Woo who recommend pulling PICC line and anticoagulating. However in the setting of a GI bleed Dr. Montes strongly recommends against any anticoagulation or chemical DVT prophylaxis. - NO anticoagulation at this time as she is too high risk. (3) Bipolar 1 disorder Code(s): F31.9 - BIPOLAR DISORDER, UNSPECIFIED SNOMED Code(s): 752626898 Comment: - Supportive tx - Continue Effexor (4) CHF (congestive heart failure) Code(s): I50.9 - HEART FAILURE, UNSPECIFIED SNOMED Code(s): 12386754 Comment: - H/o diastolic dysfunction. - Not active during this hospital stay. (5) HTN (hypertension) Code(s): I10 - ESSENTIAL (PRIMARY) HYPERTENSION SNOMED Code(s): 90982074 Comment: - Not an acute issue - SBP 130-150's - Last echo on file 2013 - EF 55% (6) DVT prophylaxis Code(s): [id number] - SNOMED Code(s): 373532411 Comment: SCDs (7) Full code status Code(s): Z78.9 - OTHER SPECIFIED HEALTH STATUS SNOMED Code(s): 774839142 Status and Disposition: Inpatient with GI bleed, now with RUE DVT. Lives alone, PT/OT, social work consults pending. Patient needs to participate in PT/OT prior to d/c. Plan for possible discharge to [facility] in the morning.
[2016-08-29] MEDS: Atorvastatin* 20 MG TAB PO SCH (17:28)
[2016-08-30] MEDS: LORazepam INJ* 2 MG/ML 1 ML VIAL IV PUSH PRN (05:01)
[2016-08-30] MEDS: Venlafaxine EXT RELEASE CAP* 37.5 MG PO SCH (09:30)
[2016-08-30] MEDS: Omeprazole CAP* 20 MG PO SCH (09:31)
[2016-08-30] MEDS: Gabapentin CAP(*) 300 MG PO SCH ×2 (09:31→09:37)
[2016-08-30] MEDS: Metoprolol Tartrate TAB* 25 MG PO SCH (09:32)
--- NOTE | 2016-08-30 11:31 | PN ---
Subjective Date of Service: 08/30/16 Interval History: Patient seen and examined at bedside. Pt is confused this morning. Denies fever , chills, shortness of breath, chest discomfort, N/V/D. Pt has been up and ambulating to the bathroom. Tele: Sinus rhythm, rate 70-80's. Pt does have occasional sinus tach when up and ambulating. Family History: Unchanged from Admission Social History: Unchanged from Admission Past Medical History: Unchanged from Admission Objective Active Medications: Acetaminophen (Tylenol Tab*) 650 mg PO Q4H PRN Reason: FEVER/PAIN Albuterol (Ventolin Hfa Inhaler*) 2 puff INH Q6H PRN Reason: SOB/WHEEZING Atorvastatin Calcium (Lipitor*) 20 mg PO 1700 WHITNEY Benzonatate (Tessalon Cap*) 200 mg PO TID PRN Reason: COUGH Docusate Sodium (Colace Cap*) 100 mg PO BID PRN Reason: CONSTIPATION Gabapentin (Neurontin Cap(*)) 300 mg PO BID WHITNEY Lorazepam (Ativan Inj*) 1 mg IV PUSH Q4H PRN Reason: ANXIETY Metoprolol Tartrate (Lopressor Tab*) 12.5 mg PO Q12HR WHITNEY Omeprazole (Prilosec Cap*) 40 mg PO BID WHITNEY Venlafaxine HCl (Effexor Xr Cap*) 37.5 mg PO BID WHITNEY Vital Signs 08/29/16 08/29/16 08/29/16 11:44 14:23 14:43 Temperature 98.1 F Pulse Rate 83 Respiratory 20 16 16 Rate Blood Pressure 138/72 (mmHg) O2 Sat by Pulse 95 Oximetry 08/29/16 08/29/16 08/29/16 15:43 16:20 20:00 Temperature 98.7 F Pulse Rate 60 Respiratory 20 20 17 Rate Blood Pressure 165/90 (mmHg) O2 Sat by Pulse 100 Oximetry 08/29/16 08/29/16 08/30/16 21:33 23:33 01:15 Temperature 98.0 F Pulse Rate 57 Respiratory 18 17 20 Rate Blood Pressure 153/71 (mmHg) O2 Sat by Pulse 97 Oximetry 08/30/16 08/30/16 08/30/16 04:25 05:01 08:00 Temperature 99.2 F Pulse Rate 94 Respiratory 20 17 18 Rate Blood Pressure 148/83 (mmHg) O2 Sat by Pulse 94 Oximetry 08/30/16 08/30/16 08/30/16 08:01 09:08 09:37 Temperature 98.4 F Pulse Rate 101 97 Respiratory 18 14 16 Rate Blood Pressure 148/78 (mmHg) O2 Sat by Pulse 98 94 Oximetry Oxygen Devices in Use Now: None Appearance: NAD, sitting up in a chair Eyes: No Scleral Icterus, PERRLA Ears/Nose/Mouth/Throat: NL Teeth, Lips, Gums, Mucous Membranes Moist Neck: NL Appearance and Movements; NL JVP, Trachea Midline Respiratory: Symmetrical Chest Expansion and Respiratory Effort, Clear to Auscultation Cardiovascular: NL Sounds; No Murmurs; No JVD, RRR Abdominal: NL Sounds; No Tenderness; No Distention - Bowel sounds present Extremities: No Edema Skin: No Rash or Ulcers Neurological: - - Alert and Oriented to Person. Confused Lines/Tubes/Other Access: Clean, Dry and Intact Peripheral IV - site benign Nutrition: Taking PO's Result Diagrams: 08/28/16 05:35 08/28/16 05:36 Additional Lab and Data: Microbiology and Other Data: Microbiology 08/22/16 09:40 Gram Stain - Final Misc Fluid (See Comment) - Other Body Fluid Culture - Final Normal Silva 08/24/16 23:20 Stool Occult Blood (CHARAN) - Final Stool 08/19/16 16:42 CLOtest - Final Gastric Antrum 08/18/16 14:45 Nasal Screen MRSA (PCR)(CHARAN) - Final Nasal Mrsa Negative Assess/Plan/Problems-Billing Assessment: Ms. Hill is a 76 y o female with a PMH of bipolar, ETOH abuse, HTN, CHF, anxiety/depression who presented to the Emergency department on 08/18/16 with c/ o 1 week of black tarry stool found to have a Hgb 6 - Patient Problems (1) Acute blood loss anemia Code(s): D62 - ACUTE POSTHEMORRHAGIC ANEMIA SNOMED Code(s): 269420421 Comment: - HH stable - Upper GI bleed with noted large duodenal ulcers (noted on endoscopy 08/19) Hgb down to 4.1 on admission, total 5 units PRBCs. Concerned pt was continuing to ooze or has another source of bleeding but Hgb has been stable. Stool positive blood 08/24. - Dr. Montes re-rounded on the pt 08/25 - agrees with plan to trend HH and monitor - recommends no AC for acute DVT due to risk of bleeding. - Continue PPI. (2) DVT of axillary vein, acute right Code(s): I82.A11 - ACUTE EMBOLISM AND THROMBOSIS OF RIGHT AXILLARY VEIN SNOMED Code(s): 119962665221288 Comment: - RUE thrombosis of the right basilic vein, branchial vein and axillary with thrombus surrounding the PICC line. Also noted partial thrombosis of the right subclavian vein. - Side consulted Dr. Woo who recommend pulling PICC line and anticoagulating. However in the setting of a GI bleed Dr. Montes strongly recommends against any anticoagulation or chemical DVT prophylaxis. - NO anticoagulation at this time as she is too high risk. (3) Bipolar 1 disorder Code(s): F31.9 - BIPOLAR DISORDER, UNSPECIFIED SNOMED Code(s): 299445329 Comment: - Supportive tx - Continue Effexor (4) CHF (congestive heart failure) Code(s): I50.9 - HEART FAILURE, UNSPECIFIED SNOMED Code(s): 22368119 Comment: - H/o diastolic dysfunction. - Not active during this hospital stay. (5) HTN (hypertension) Code(s): I10 - ESSENTIAL (PRIMARY) HYPERTENSION SNOMED Code(s): 65381006 Comment: - Not an acute issue - SBP 140-150's - Last echo on file 2013 - EF 55% (6) DVT prophylaxis Code(s): LAV0856 - SNOMED Code(s): 393207301 (7) Full code status Code(s): Z78.9 - OTHER SPECIFIED HEALTH STATUS SNOMED Code(s): 234846557 Status and Disposition: Inpatient with GI bleed, now with RUE DVT. Stable for discharge to [facility] today.
[2016-08-30 11:38] VITALS: BP 144/85
--- NOTE | 2016-08-30 15:31 | DS ---
DISCHARGE SUMMARY: DATE OF ADMISSION: 08/18/16 DATE OF DISCHARGE: 08/30/16 ATTENDING PHYSICIAN: Dr. Chas Perkins * (dictated by Bia Wilson NP). PRIMARY CARE PROVIDER: Dr. Gonzalez Mehta. CONSULTATION WHILE IN THE HOSPITAL: Dr. Nathan Conrad with Gastroenterology. PROCEDURES WHILE IN THE HOSPITAL: 1. Status post endotracheal intubation on 08/19/16. 2. Status post EGD on 08/19/[address] Rudy Montes. 3. Status post fiberoptic bronchoscopy on 08/20/[address] Luis Shoemaker. STUDIES WHILE IN THE HOSPITAL: 1. Chest x-ray on 08/18/16. Radiologist's impression: No evidence for acute findings. Large hiatal hernia. 2. Chest x-ray on 08/19/16 at 1013. Radiologist's impression: Elevated right hemidiaphragm with likely right bibasilar atelectasis. Left lung field is clear. ET tube inappropriate position. 3. Chest x-ray on 08/19/16 at 1057. Radiologist's impression: Lines and tubes as above. A gastric tube may be intragastric, although the position is indeterminate on the current image. Findings were discussed with the ICU team at approximately 12 p.m. 4. Chest x-ray on 08/20/16. Radiologist's impression: ET tube in appropriate location. Right lower lobe consolidation. Left lung field is clear. 5. Chest x-ray on 08/21/16. Radiologist's impression: Lines and tubes as described. Persistent right lower lung consolidation. 6. Chest x-ray on 08/22/16. Radiologist's impression: Worsening aeration as described above when compared to the previous day chest x-ray. 7. Chest x-ray on 08/23/16: Radiologist's impression: Lines and tubes as described. Persistent right mid and lower lung atelectasis versus consolidation with developing atelectasis versus consolidation of the left lower lung. 8. Venous Doppler study of the right upper extremity on 08/24/16. Radiologist' s impression: Thrombus of the right basilic vein, brachial vein and axillary vein with thrombus surrounding the PICC line. Partial thrombus of the right subclavian vein is noted. 9. Chest x-ray on 08/24/16. Radiologist's impression: Right lower lobe consolidation or atelectasis. Endotracheal tube has been removed. DISCHARGE MEDICATIONS: New home medications: 1. Acetaminophen 650 mg oral every 4 hours as needed for fever or pain. 2. Colace 100 mg oral twice daily as needed for constipation. Continued home medications: 1. Effexor XR 37.5 mg oral twice daily. 2. Metoprolol tartrate 25 mg oral twice daily. 3. Fosamax 70 mg oral weekly. 4. Xopenex HFA inhaler 2 puffs inhalation every 8 hours as needed for wheezing. 5. Gabapentin 30 mg oral twice daily. 6. Nexium 40 mg oral twice daily. 7. Advair Diskus 500/50 one puff inhalation twice daily. 8. Atorvastatin 20 mg oral daily. 9. Spiriva 1 capsule oral inhalation daily. 10. Furosemide 20 mg oral daily. Discontinued home medications: Acetaminophen withe codeine. HISTORY OF PRESENT ILLNESS/HOSPITAL COURSE: Ms. Hill is a 76-year-old female with past medical history significant for alcohol abuse and bipolar disorder who presents to the emergency room with complaints of 1 week of black tarry stools. She was found to have a hemoglobin of 6 in the emergency room and a positive stool guaiac with bright red blood. The patient has a history of alcohol abuse and most recently had been seen a week prior to her presentation in the emergency room, in the emergency room following ingestion of Listerine for its alcohol content. While in the hospital, the patient was admitted to the intensive care unit. She was felt to be hemodynamically stable. She also had metabolic acidosis possibly due to diarrhea. The patient was initiated on a Protonix infusion and had a GI consultation. The patient was seen by Dr. Conrad with Gastroenterology who felt that the patient needed to have an upper endoscopy. It is noted that the patient had not been taking her Nexium as prescribed. It was felt that there was no evidence of portal hypertension so this was unlikely related to liver disease. Overnight, on the night of August 19, the patient developed signs of alcohol withdrawal that progressed and the patient became severely agitated and required high doses of benzodiazepines and Haldol for sedation. It was felt that the patient was having a difficult time protecting her air way due to the heavy level of sedation and an endotracheal intubation was performed by Dr. Luis Shoemaker. The patient underwent an EGD on August 19 with an upper endoscopy into the duodenal bulb with biopsies. The patient also had an H. pylori biopsy. There was 3 clean- based duodenal bulb ulcers. The patient also had a chest x-ray showing right lung atelectasis versus consolidation. The patient underwent a fiber optic bronchoscopy on August 20 at that time it was felt that the patient possibly had an atelectasis of the right lung base. As a result of selective ventilation of the left lung because of the low position of the endotracheal tube. The patient had secretion suctioned. Over the course of the patient's stay, she received 5 units of red blood cells with her hemoglobin and hematocrit eventually remaining stable with her last hemoglobin at 7.8 and hematocrit of 24. During the patient's stay, her acidosis resolved. The patient intermittently had a hypokalemia and received potassium replacement. The patient continued to progress, was able to be weaned off of the ventilator. The patient was then moved to the regular medical floor. The patient was noted to have a right arm DVT after confirmation with a venous Doppler. Unfortunately, due to the patient 's GI bleed 4 days prior in her duodenal ulcers, anticoagulation was felt to be contraindicated at this time. The patient reported feeling much better. She intermittently had confusion. The patient was continued on her Effexor for her bipolar disorder. She has a history of diastolic dysfunction, it was not felt to be an active problem during her stay. The patient had been monitored on telemetry and noted to be in sinus rhythm, occasional sinus tachycardia when ambulating. The patient was also noted to have a first degree block and a right bundle branch block. During the stay, the patient's H and H has remained stable. She was continued on an oral PPI. The patient's PICC line was removed due to the right axillary vein DVT. It was felt that Ms. Hill could not manage at home and needed to go to subacute rehab. The patient has been offered a bed at [facility]. DISCHARGE PLAN: Ms. Hill is stable for discharge to [facility]. Activity as tolerated. She should continue OT and physical therapy. She should be on her regular soft diet. As far as the patient's right upper extremity DVT, anticoagulation is contraindicated at this time due to her recent GI bleed. As far as the patient's GI bleed, she should be continued on a proton pump inhibitor twice daily. The patient should be seen by her primary care provider Dr. Mehta or [facility]'s provider per their protocol. This is a summarized report of a complex medical history and hospital stay. For further details, please see the entire medical record. TIME SPENT: Time for this discharge was 50 minutes. CONDITION ON DISCHARGE: Stable. Reviewed by ROXI DRAPER 09/11/16 1655 CC: Dr. Gonzalez Mehta * [id number]/CPS #: [id number] MARTIN
== END 2016-08-30 15:38 | DRG 378 ==
LOC: ED 11:56 → ICU 14:00 → MEDTELE 08-24 13:00
PROVIDERS: ADMIT Internal Medicine Critical Care Medicine; ATTEND Hospitalist
PROC: 30233N1 Transfusion of Nonautologous Red Blood Cells into Peripheral Vein, Percutaneous Approach (ICD-10-PCS; principal; 2016-08-18)
PROC: 0D9670Z Drainage of Stomach with Drainage Device, Via Natural or Artificial Opening (ICD-10-PCS; 2016-08-18)
PROC: 5A1945Z Respiratory Ventilation, 24-96 Consecutive Hours (ICD-10-PCS; 2016-08-19)
PROC: 0BH17EZ Insertion of Endotracheal Airway into Trachea, Via Natural or Artificial Opening (ICD-10-PCS; 2016-08-19)
PROC: 0DB68ZX Excision of Stomach, Via Natural or Artificial Opening Endoscopic, Diagnostic (ICD-10-PCS; 2016-08-19)
PROC: 02HV33Z Insertion of Infusion Device into Superior Vena Cava, Percutaneous Approach (ICD-10-PCS; 2016-08-19)
PROC: 0DB98ZX Excision of Duodenum, Via Natural or Artificial Opening Endoscopic, Diagnostic (ICD-10-PCS; 2016-08-19)
PROC: 0BJ08ZZ Inspection of Tracheobronchial Tree, Via Natural or Artificial Opening Endoscopic (ICD-10-PCS; 2016-08-20)
PROC: 3E0G76Z Introduction of Nutritional Substance into Upper GI, Via Natural or Artificial Opening (ICD-10-PCS; 2016-08-22)
PROC: 02PYX3Z Removal of Infusion Device from Great Vessel, External Approach (ICD-10-PCS; 2016-08-25)
DX: K26.4 Chronic or unspecified duodenal ulcer with hemorrhage (principal); D62 Acute posthemorrhagic anemia; F10.231 Alcohol dependence with withdrawal delirium; E87.2 Acidosis; I82.621 Acute embolism and thrombosis of deep veins of right upper extremity; I11.0 Hypertensive heart disease with heart failure; I50.9 Heart failure, unspecified; I82.A11 Acute embolism and thrombosis of right axillary vein; J98.11 Atelectasis; I82.B11 Acute embolism and thrombosis of right subclavian vein; K92.1 Melena; F31.9 Bipolar disorder, unspecified; E78.00 Pure hypercholesterolemia, unspecified; J45.909 Unspecified asthma, uncomplicated; J44.9 Chronic obstructive pulmonary disease, unspecified; K58.9 Irritable bowel syndrome, unspecified; K44.9 Diaphragmatic hernia without obstruction or gangrene; M19.90 Unspecified osteoarthritis, unspecified site; F41.9 Anxiety disorder, unspecified; R00.0 Tachycardia, unspecified; I45.10 Unspecified right bundle-branch block; E87.6 Hypokalemia; I44.0 Atrioventricular block, first degree; R41.0 Disorientation, unspecified; Z80.0 Family history of malignant neoplasm of digestive organs; Z88.1 Allergy status to other antibiotic agents; Z88.8 Allergy status to other drugs, medicaments and biological substances; Z87.440 Personal history of urinary (tract) infections; Z81.1 Family history of alcohol abuse and dependence; Z81.8 Family history of other mental and behavioral disorders; Z80.3 Family history of malignant neoplasm of breast; Z87.891 Personal history of nicotine dependence
CPT/HCPCS: 31622; 36415; 71010; 80048; 80053; 81003; 82140; 82272; 82550; 83605; 83690; 83735; 83880; 84484; 85014; 85018; 85025; 85027; 85610; 85730; 86140; 86850; 86900; 86901; 86922; 87070; 87077; 87205; 87641; 93005; 94002; 94003; 94640; 94660; 94760; 99285; A9270-GY; C1751; J1630; J1940; J2060; J2250; J2270; J2405; J2704; J3010; J3475; P9016; P9040

== ENCOUNTER 2016-09-26 17:28 | Emergency (ER) | payer MEDICARE, BC ==
[2016-09-26 19:51] LABS: Hematocrit 33 % (35-47); Hemoglobin 10.5 g/dl (12.0-16.0); Mean Corpuscular HGB Conc 32 g/dl (31-36); Mean Corpuscular Hemoglobin 26 pg (27-31); Mean Corpuscular Volume 83 fL (80-97); Mean Platelet Volume 8 um3 (7.4-10.4); Red Blood Count 3.99 10^6/ul (4.0-5.4); Red Cell Distribution Width 18 % (10.5-15); White Blood Count 7.4 10^3/ul (3.5-10.8)
[2016-09-26 20:00] LABS: Urine Bacteria 1+ (Absent); Urine Bilirubin Negative (Negative); Urine Glucose Negative (Negative); Urine Nitrite Negative (Negative)
[2016-09-26 20:04] LABS: Benzodiazepine Urine Screen Presumptive Positive (None Detect)
[2016-09-26 20:05] LABS: ALT 10 U/L (7-52); AST 15 U/L (13-39); Albumin 3.7 g/dL (3.2-5.2); Alkaline Phosphatase 54 U/L (34-104); Anion Gap 6 mmol/L (2-11); BUN/Creatinine Ratio 18.1 (8-20); Blood Urea Nitrogen 19 mg/dL (6-24); CO2 Carbon Dioxide 26 mmol/L (22-32); Calcium 9.3 mg/dL (8.6-10.3); Chloride 106 mmol/L (101-111); EGFR African American 65.7 (>60); EGFR Non-African American 51.1 (>60); Globulin 2.9 g/dL (2-4); Glucose 95 mg/dL (70-100); Potassium 3.9 mmol/L (3.5-5.0); Sodium 138 mmol/L (133-145); Total Protein 6.6 g/dL (6.4-8.9)
[2016-09-26 20:16] LABS: Acetaminophen < 15 mcg/mL; Alcohol < 10 mg/dL (<10); Salicylate < 2.50 mg/dL (<30)
[2016-09-26 20:26] LABS: TSH (Thyroid Stimulating Horm) 2.74 mcIU/mL (0.34-5.60)
--- NOTE | 2016-09-26 22:06 | ED ---
Psychiatric Complaint - HPI Summary HPI Summary: Patient DANA after being pulled over, driving erratically and confusion. Patient has a long history of psychiatric illness. On exam, patient is very confused and frustrated and yelling at the nurse. Patient states she took all of her medications this morning, so I will not order any at this time. MHU evaluation. Patient with a ETOH history who is sober on arrival but notes to some times of drinking listerine. - History Of Current Complaint Chief Complaint: EDMentalHealth Time Seen by Provider: 09/26/16 18:26 Hx Obtained From: Patient Hx From Patient Unobtainable Due To: Altered Mental Status ?: No Severity Initially: Moderate Severity Currently: Moderate Character: Frustrated Aggravating Factor(s): Nothing Alleviating Factor(s): Nothing Associated Signs And Symptoms: Positive: Negative Related History: Positive For: Prior Psychiatric Issues - Risk Factor(s) Completed Suicide Risk Factors: Age Greater Than 60, White [place] - Allergies/Home Medications Allergies/Adverse Reactions: Allergies Allergy/AdvReac Type Severity Reaction Status Date / Time Bacitracin Allergy Unknown Unknown Verified 01/18/15 17:23 [From [facility] Triple [facility]iotic] Reaction Details Neomycin Allergy Unknown Unknown Verified 01/18/15 17:23 [From [facility] Triple Antibiotic] Reaction Details Polymyxin B Allergy Unknown Unknown Verified 01/18/15 17:23 [From [facility] Triple Antibiotic] Reaction Details Aspirin Allergy Anaphylatic Verified 01/18/15 17:23 Shock Cefuroxime [From Ceftin] Allergy Swelling Verified 01/18/15 17:23 PMH/Surg Hx/FS Hx/Imm Hx Previously Healthy: Yes Endocrine/Hematology History: Denies: Hx Anticoagulant Therapy, Hx Diabetes, Hx Thyroid Disease, Hx Anemia , Hx Unexplained Bleeding Cardiovascular History: Reports: Hx Congestive Heart Failure, Hx Hypercholesterolemia, Hx Hypertension, Other Cardiovascular Problems/Disorders - ENLARGED HEART/HYPERCHOLESTEROLEMIA Denies: Hx Aneurysm, Hx Angina, Hx Angioplasty, Hx Auto Implanted Cardiovert Defib, Hx Cardiac Arrest, Hx Cardiomegaly, Hx Congenital Heart Disease, Hx Coronary Artery Disease, Hx Deep Vein Thrombosis, Hx Embolism, Hx Hypotension, Hx Pacemaker/ICD, Hx Peripheral Vascular Disease, Hx Rheumatic Fever, Hx Syncope , Hx Valvular Heart Disease Respiratory History: Reports: Hx Asthma, Hx Chronic Obstructive Pulmonary Disease (COPD) Denies: Hx Chronic Bronchitis, Hx Cystic Fibrosis, Hx Lung Cancer, Hx Pleural Effusion, Hx Pneumonia, Hx Pulmonary Edema, Hx Pulmonary Embolism, Hx Seasonal Allergies, Hx Sleep Apnea, Other Respiratory Problems/Disorders GI History: Reports: Hx Gastrointestinal Bleed, Hx Hiatal Hernia, Hx Irritable Bowel Denies: Hx Cirrhosis History: Reports: Other Problems/Disorders - UTIs, chronic. Denies: Hx Renal Disease Musculoskeletal History: Reports: Hx Arthritis Denies: Hx Back Problems, Hx Bursitis, Hx Congenital Bone Abnormalities, Hx Fibromyalgia, Hx Gout, Hx Orthopedic Injury, Hx Osteoporosis, Hx Scoliosis, Hx Tendonitis, Other Musculoskeletal History Sensory History: Reports: Hx Contacts or Glasses Denies: Hx Cataracts, Hx Eye Injury, Hx Eye Prosthesis, Hx Glaucoma, Hx Macular Degeneration, Hx Vision Problem, Hx Deafness, Hx Hearing Aid, Hx Hearing Problem, Other Sensory Impairments Opthamlomology History: Reports: Hx Contacts or Glasses Denies: Hx Cataracts, Hx Eye Injury, Hx Eye Prosthesis, Hx Glaucoma, Hx Macular Degeneration, Hx Vision Problem, Other Sensory Impairments Neurological History: Denies: Hx Dementia, Hx Seizures Psychiatric History: Reports: Hx Anxiety, Hx Depression, Hx Community Mental Health Tx, Hx Bipolar Disorder, Hx Substance Abuse - alcohol, Other Psychiatric Issues/Disorders Denies: Hx Attention Deficit Hyperactivity Disorder, Hx Eating Disorder, Hx Panic Disorder, Hx Post Traumatic Stress Disorder, Hx Inpatient Treatment, Hx Schizophrenia, Hx Suicide Attempt, Hx of Violent Episodes Against Others - Cancer History Hx Chemotherapy: No Hx Radiation Therapy: No - Surgical History Surgery Procedure, Year, and Place: appendectomy,. tonsillectomy,. right hip replacement - Immunization History Date of Tetanus Vaccine: Unsure Date of Influenza Vaccine: 2012 Infectious Disease History: No Infectious Disease History: Denies: Hx Hepatitis, Hx Human Immunodeficiency Virus (HIV), Hx Tuberculosis , Traveled Outside the [place] in Last 30 Days - Family History Known Family History: Positive: None - reviewed non-contributory, Other Family History: FHx of depression, bipolar disorder, alcohol abuse, and breast CA - Social History Alcohol Use: patient gives varying stories about etoh use Alcohol Amount: states last drink was 2 weeks ago Substance Use Type: Reports: None Smoking Status (MU): Former Smoker Amount Used/How Often: OVER 2 PPD Length of Time of Smoking/Using Tobacco: 12 YEARS Have You Smoked in the Last Year: No Review of Systems Constitutional: Negative Eyes: Negative ENT: Negative Cardiovascular: Negative Respiratory: Negative Genitourinary: Negative Skin: Negative Neurological: Negative Psychological: Normal All Other Systems Reviewed And Are Negative: Yes Physical Exam Triage Information Reviewed: Yes Vital Signs On Initial Exam: Initial Vitals Temp Pulse Resp BP Pulse Ox 97.7 F 78 18 136/78 98 09/26/16 18:06 09/26/16 18:06 09/26/16 18:06 09/26/16 18:06 09/26/16 18:06 Completion Of Physical Exam Limited Due To: Altered Mental Status Appearance: Positive: Well-Appearing, No Pain Distress, Well-Nourished Skin: Positive: Warm, Skin Color Reflects Adequate Perfusion Head/Face: Positive: Normal Head/Face Inspection Eyes: Positive: Normal, GUS ENT: Positive: Pharynx normal Neck: Positive: Supple, Nontender Respiratory/Lung Sounds: Positive: Clear to Auscultation, Breath Sounds Present Cardiovascular: Positive: Normal, RRR Abdomen Description: Positive: Nontender Musculoskeletal: Positive: Normal, Strength/ROM Intact Neurological: Positive: Sensory/Motor Intact, Other - no oriented to place or time, but oriented to person Psychiatric: Positive: Patient Uncooperative for Exam AVPU Assessment: Alert - Prichard Coma Scale Best Eye Response: 4 - Spontaneous Best Motor Response: 6 - Obeys Commands Best Verbal Response: 5 - Oriented Coma Scale Total: 15 Diagnostics - Vital Signs Vital Signs Temp Pulse Resp BP Pulse Ox 09/26/16 21:30 97.7 F 78 18 132/76 98 09/26/16 18:06 97.7 F 78 18 136/78 98 - Laboratory Lab Results: Lab Results 09/26/16 09/26/16 09/26/16 Range/Units 19:35 19:35 19:35 WBC 7.4 (3.5-10.8) 10^3/ul RBC 3.99 L (4.0-5.4) 10^6/ul Hgb 10.5 L (12.0-16.0) g/dl Hct 33 L (35-47) % MCV 83 (80-97) fL MCH 26 L (27-31) pg MCHC 32 (31-36) g/dl RDW 18 H (10.5-15) % Plt Count 421 (150-450) 10^3/ul MPV 8 (7.4-10.4) um3 Neut % (Auto) 63.5 (38-83) % Lymph % (Auto) 21.4 L (25-47) % [place] % (Auto) 9.1 H (1-9) % Eos % (Auto) 5.4 (0-6) % Baso % (Auto) 0.6 (0-2) % Absolute Neuts (auto) 4.7 (1.5-7.7) 10^3/ul Absolute Lymphs (auto) 1.6 (1.0-4.8) 10^3/ul Absolute Monos (auto) 0.7 (0-0.8) 10^3/ul Absolute Eos (auto) 0.4 (0-0.6) 10^3/ul Absolute Basos (auto) 0 (0-0.2) 10^3/ul Absolute Nucleated RBC 0 10^3/ul Nucleated RBC % 0 Sodium 138 (133-145) mmol/L Potassium 3.9 (3.5-5.0) mmol/L Chloride 106 (101-111) mmol/L Carbon Dioxide 26 (22-32) mmol/L Anion Gap 6 (2-11) mmol/L BUN 19 (6-24) mg/dL Creatinine 1.05 H (0.51-0.95) mg/dL Est GFR ( Amer) 65.7 (>60) Est GFR (Non-Af Amer) 51.1 (>60) BUN/Creatinine Ratio 18.1 (8-20) Glucose 95 (70-100) mg/dL Calcium 9.3 (8.6-10.3) mg/dL Total Bilirubin 0.30 (0.2-1.0) mg/dL AST 15 (13-39) U/L ALT 10 (7-52) U/L Alkaline Phosphatase 54 (34-104) U/L Total Protein 6.6 (6.4-8.9) g/dL Albumin 3.7 (3.2-5.2) g/dL Globulin 2.9 (2-4) g/dL Albumin/Globulin Ratio 1.3 (1-3) TSH 2.74 (0.34-5.60) mcIU/mL Urine Color Amanda Urine Appearance Cloudy Urine pH 5.0 (5-9) Ur Specific [place] 1.008 L (1.010-1.030) Urine Protein Negative (Negative) Urine Ketones Negative (Negative) Urine Blood Negative (Negative) Urine Nitrate Negative (Negative) Urine Bilirubin Negative (Negative) Urine Urobilinogen Negative (Negative) Ur Leukocyte Esterase 1+ H (Negative) Urine WBC (Auto) Trace(0-5/hpf) (Absent) Urine RBC (Auto) Trace(0-2/hpf) (Absent) Urine Bacteria 1+ H (Absent) Urine Glucose Negative (Negative) Salicylates < 2.50 (<30) mg/dL Urine Opiates Screen (None Detect) Acetaminophen < 15 mcg/mL Ur Barbiturates Screen (None Detect) Ur Phencyclidine Scrn (None Detect) Ur Amphetamines Screen (None Detect) U Benzodiazepines Scrn (None Detect) Urine Cocaine Screen (None Detect) U Cannabinoids Screen (None Detect) Serum Alcohol < 10 (<10) mg/dL 09/26/16 Range/Units 19:35 WBC (3.5-10.8) 10^3/ul RBC (4.0-5.4) 10^6/ul Hgb (12.0-16.0) g/dl Hct (35-47) % MCV (80-97) fL MCH (27-31) pg MCHC (31-36) g/dl RDW (10.5-15) % Plt Count (150-450) 10^3/ul MPV (7.4-10.4) um3 Neut % (Auto) (38-83) % Lymph % (Auto) (25-47) % [place] % (Auto) (1-9) % Eos % (Auto) (0-6) % Baso % (Auto) (0-2) % Absolute Neuts (auto) (1.5-7.7) 10^3/ul Absolute Lymphs (auto) (1.0-4.8) 10^3/ul Absolute Monos (auto) (0-0.8) 10^3/ul Absolute Eos (auto) (0-0.6) 10^3/ul Absolute Basos (auto) (0-0.2) 10^3/ul Absolute Nucleated RBC 10^3/ul Nucleated RBC % Sodium (133-145) mmol/L Potassium (3.5-5.0) mmol/L Chloride (101-111) mmol/L Carbon Dioxide (22-32) mmol/L Anion Gap (2-11) mmol/L BUN (6-24) mg/dL Creatinine (0.51-0.95) mg/dL Est GFR ( Amer) (>60) Est GFR (Non-Af Amer) (>60) BUN/Creatinine Ratio (8-20) Glucose (70-100) mg/dL Calcium (8.6-10.3) mg/dL Total Bilirubin (0.2-1.0) mg/dL AST (13-39) U/L ALT (7-52) U/L Alkaline Phosphatase (34-104) U/L Total Protein (6.4-8.9) g/dL Albumin (3.2-5.2) g/dL Globulin (2-4) g/dL Albumin/Globulin Ratio (1-3) TSH (0.34-5.60) mcIU/mL Urine Color Urine Appearance Urine pH (5-9) Ur Specific [place] (1.010-1.030) Urine Protein (Negative) Urine Ketones (Negative) Urine Blood (Negative) Urine Nitrate (Negative) Urine Bilirubin (Negative) Urine Urobilinogen (Negative) Ur Leukocyte Esterase (Negative) Urine WBC (Auto) (Absent) Urine RBC (Auto) (Absent) Urine Bacteria (Absent) Urine Glucose (Negative) Salicylates (<30) mg/dL Urine Opiates Screen Presumptive positive H (None Detect) Acetaminophen mcg/mL Ur Barbiturates Screen None detected (None Detect) Ur Phencyclidine Scrn None detected (None Detect) Ur Amphetamines Screen None detected (None Detect) U Benzodiazepines Scrn Presumptive positive H (None Detect) Urine Cocaine Screen None detected (None Detect) U Cannabinoids Screen None detected (None Detect) Serum Alcohol (<10) mg/dL Result Diagrams: 09/26/16 19:35 09/26/16 19:35 Lab Statement: Any lab studies that have been ordered have been reviewed, and results considered in the medical decision making process. Course/Dx - Course Course Of Treatment: no oriented to place or time, but oriented to person - patient pulled over for driving erratically and confused behavior. patient has long history of psychiatric illness. denies pain or concerns. hostile during exam. no security needed. Patient will stay overnight in the ED to await SB eval tomorrow. Patient is psychiatrically cleared but is unable to go home unless resources are in place. - Differential Dx/Clinical Impression Differential Diagnosis/HQI/PQRI: Positive: Acute Psychosis, Bipolar Disorder, Other - dementia Provider Diagnosis: Confusion Discharge - Discharge Plan Condition: Stable Disposition: HOME Patient Education Materials: Altered Mental Status (ED) Referrals: Urszula Ulloa MD [Primary Care Provider] - Additional Instructions: Follow up with Dr. Ulloa (PCP)
[2016-09-27 01:44] VITALS: BP 141/94
== END 2016-09-27 15:01 | disposition home or self-care (01) ==
LOC: ED 17:28
DX: R41.0 Disorientation, unspecified (principal); Z87.891 Personal history of nicotine dependence
CPT/HCPCS: 36415; 80053; 80307; 80320; 80329; 81003; 81015; 84443; 85025; 87086; 99284; G0480

== ENCOUNTER 2017-04-14 12:11 | Emergency (ER) | payer MEDICARE, BC ==
[2017-04-14 12:56] VITALS: BP 122/82
--- NOTE | 2017-04-14 13:39 | UC ---
Throat Pain/Nasal Shashank HPI - HPI Summary HPI Summary: FIVE DAYS OF CONGESTION, FACIAL PRESSURE, COUGH. NO FEVER. NO KNOWN SICK CONTACTS. - History of Current Complaint Hx Obtained From: Patient, Family/[employer] Onset/Duration: Gradual Onset, Lasting Weeks, Still Present Severity: Moderate Cough: Nonproductive Associated Signs & Symptoms: Positive: Hoarseness, Sinus Discomfort, Nasal Discharge - Epiglottits Risk Factors Epiglottis Risk Factors: Negative <Ryan Scott - Last Filed: 04/14/17 13:35> <Jazmine Perkins - Last Filed: 04/14/17 14:11> - History of Current Complaint Chief Complaint: UCGeneralIllness Stated Complaint: sore throat, and ear ache Time Seen by Provider: 04/14/17 13:25 - Allergies/Home Medications Allergies/Adverse Reactions: Allergies Allergy/AdvReac Type Severity Reaction Status Date / Time Bacitracin Allergy Unknown Unknown Verified 04/14/17 12:56 [From [facility]] Reaction Details Neomycin Allergy Unknown Unknown Verified 04/14/17 12:56 [From [facility] Triple [facility]iotic] Reaction Details Polymyxin B Allergy Unknown Unknown Verified 04/14/17 12:56 [From [facility] Triple Antibiotic] Reaction Details Aspirin Allergy Anaphylatic Verified 04/14/17 12:56 Shock Cefuroxime [From Ceft[facility]] Allergy Swelling Verified 04/14/17 12:56 PMH/Surg Hx/FS Hx/Imm Hx Previously Healthy: Yes Other History Of: Negative For: Anticoagulant Therapy - Surgical History Surgical History: Yes Surgery Procedure, Year, and Place: appendectomy,. tonsillectomy,. right hip replacement - Family History Known Family History: Positive: None - reviewed non-contributory, Other Family History: FHx of depression, bipolar disorder, alcohol abuse, and breast CA - Social History Alcohol Use: None Alcohol Amount: states last drink was 2 weeks ago Substance Use Type: None Smoking Status (MU): Former Smoker Amount Used/How Often: OVER 2 PPD Length of Time of Smoking/Using Tobacco: 12 YEARS Have You Smoked in the Last Year: No When Did the Patient Quit Smoking/Using Tobacco: 50 YEARS - Immunization History Most Recent Influenza Vaccination: April 2013 Most Recent Tetanus Shot: 2011 OR 2012 Most Recent Pneumonia Vaccination: November 2012 <Ryan Scott - Last Filed: 04/14/17 13:35> Review of Systems Constitutional: Negative Skin: Negative Eyes: Negative ENT: Nasal Discharge, Sinus Congestion, Sinus Pain/Tenderness Respiratory: Cough Cardiovascular: Negative Gastrointestinal: Negative Genitourinary: Negative Motor: Negative Neurovascular: Negative Musculoskeletal: Negative Neurological: Negative Psychological: Negative Is Patient Immunocompromised?: No All Other Systems Reviewed And Are Negative: Yes <ChristinerichRyan - Last Filed: 04/14/17 13:35> Physical Exam Triage Information Reviewed: Yes Appearance: Well-Appearing, No Pain Distress, Well-Nourished Vital Signs: Initial Vital Signs Temp 96.8 F 04/14/17 12:50 Pulse 88 04/14/17 12:50 Resp 20 04/14/17 12:50 BP 122/82 04/14/17 12:50 Pulse Ox 99 04/14/17 12:50 Vital Signs Reviewed: Yes Eye Exam: Normal ENT: Positive: Hearing grossly normal, Nasal congestion, TM bulging, TM dull Dental Exam: Normal Neck exam: Normal Neck: Positive: Supple, Nontender, No Lymphadenopathy Respiratory Exam: Other - COUGH Respiratory: Positive: Chest non-tender, Lungs clear, Normal breath sounds, No respiratory distress, No accessory muscle use Cardiovascular Exam: Normal Cardiovascular: Positive: RRR, No Murmur, Pulses Normal Abdominal Exam: Normal Musculoskeletal Exam: Normal Musculoskeletal: Positive: Strength Intact, ROM Intact, No Edema Neurological Exam: Normal Psychological Exam: Normal Skin Exam: Normal <SoniaRyan - Last Filed: 04/14/17 13:35> Vital Signs: Initial Vital Signs Temp 96.8 F 04/14/17 12:50 Pulse 88 04/14/17 12:50 Resp 04/14/17 12:50 BP 122/82 04/14/17 12:50 Pulse Ox 99 04/14/17 12:50 <Jazmine Perkins - Last Filed: 04/14/17 14:11> Throat Pain/Nasal Course/Dx - Differential Dx/Diagnosis Differential Diagnosis/HQI/PQRI: Sinusitis, Tonsillitis, URI Provider Diagnoses: SINUSITIS; UPPER RESPIRATORY INFECTION <Ryan Scott - Last Filed: 04/14/17 13:35> Discharge <Ryan Scott - Last Filed: 04/14/17 13:35> <Jazmine Perkins - Last Filed: 04/14/17 14:11> - Discharge Plan Condition: Stable Disposition: HOME Prescriptions: Amoxicillin/Clavulanate TAB* [Augmentin TAB 875*] 875 mg PO BID #20 tab Benzonatate CAP* [Tessalon 100 MG CAP*] 100 mg PO TID #15 cap Patient Education Materials: Sinusitis (ED), Upper Respiratory Infection (ED) Referrals: Carrie Munguia MD [Primary Care Provider] - Attestation Statement User Type: Provider - I was available for consult. This patient was seen by the LATANY[facility]. The patient was not presented to, seen by, or examined by me. -Stacey <Jazmine Perkins - Last Filed: 04/14/17 14:11>
== END 2017-04-14 13:58 | disposition home or self-care (01) ==
LOC: UCEAST 12:11
DX: J01.90 Acute sinusitis, unspecified (principal); Z88.6 Allergy status to analgesic agent; Z87.891 Personal history of nicotine dependence
CPT/HCPCS: 99212; G0463